=== PATIENT | female | born 1950 | race Caucasian/White ===

== ENCOUNTER 2016-12-05 14:20 | Inpatient (IN) | payer MEDICAID, MEDICARE ==
--- NOTE | 2016-12-05 14:54 | ED Physician Chart ---
Chief Complaint/HPI - Patient Information Date Seen:: 12/05/16 Time Seen:: 14:40 Chief Complaint:: generalized weakness History of Present Illness:: has had generalized weakness and increased confusion for one week. Allergies:: Allergies Allergy/AdvReac Type Severity Reaction Status Date / Time No Known Allergies Allergy Verified 12/05/16 14:38 Vitals:: Vital Signs - 8 hr 12/05/16 14:38 Temp 97.7 F HR 109 RR 21 BP 132/70 O2 Sat % 98 Historian:: Other Review:: Nurse's Note Reviewed, Transfer documents Reviewed Review of Systems - Review of Systems General/Constitutional: No fever, No chills Skin: No skin lesions Head: No headache Eyes: No loss of vision ENT: No earache, No nasal drainage Neck: No neck pain Cardio Vascular: No chest pain Pulmonary: No SOB GI: No nausea, No vomiting G/U: No dysuria, No frequency Musculoskeletal: No bone or joint pain, No back pain Psychiatric: No prior psych history Hematopoietic: No bruising Allergic/Immuno: No urticaria Neurological: No syncope Past Medical History - Past Medical History Past Medical History: Other (dementia; dysphagia) Family History: Other (unavailable) Social History: Care Facility Surgical History: other (unavailable) Psychiatricy History: Dementia Medication: Reviewed Labs/Radiology/EKG Results - Lab Results Results: Laboratory Results - last 24 hr 12/05/16 12/05/16 12/05/16 15:06 15:06 15:06 WBC 15.4 H D RBC 4.70 Hgb 14.0 Hct 40.9 D MCV 87.1 MCH 29.8 MCHC Differential 34.1 RDW 13.6 Plt Count 310 MPV 9.2 Neutrophils % 66.2 Lymphocytes % 19.7 L Monocytes % 13.6 H Eosinophils % 0.1 Basophils % 0.4 Sodium 141 Potassium 3.9 Chloride 108 H Carbon Dioxide 25.4 Anion Gap 11.5 BUN 22 Creatinine 0.8 Est GFR ( Amer) > 60.0 Est GFR (Non-Af Amer) > 60.0 BUN/Creatinine Ratio 27.5 Glucose 264 H Hemoglobin A1c % Calcium 9.5 Valproic Acid 68.4 12/05/16 15:06 WBC RBC Hgb Hct MCV MCH MCHC Differential RDW Plt Count MPV Neutrophils % Lymphocytes % Monocytes % Eosinophils % Basophils % Sodium Potassium Chloride Carbon Dioxide Anion Gap BUN Creatinine Est GFR ( Amer) Est GFR (Non-Af Amer) BUN/Creatinine Ratio Glucose Hemoglobin A1c % 5.6 Calcium Valproic Acid Laboratory Results - last 24 hr 12/05/16 12/05/16 12/05/16 15:06 15:06 15:06 WBC 15.4 H D RBC 4.70 Hgb 14.0 Hct 40.9 D MCV 87.1 MCH 29.8 MCHC Differential 34.1 RDW 13.6 Plt Count 310 MPV 9.2 Neutrophils % 66.2 Lymphocytes % 19.7 L Monocytes % 13.6 H Eosinophils % 0.1 Basophils % 0.4 Sodium 141 Potassium 3.9 Chloride 108 H Carbon Dioxide 25.4 Anion Gap 11.5 BUN 22 Creatinine 0.8 Est GFR ( Amer) > 60.0 Est GFR (Non-Af Amer) > 60.0 BUN/Creatinine Ratio 27.5 Glucose 264 H Hemoglobin A1c % Calcium 9.5 Urine Source Urine Color Urine Clarity Urine pH Ur Specific [place] Urine Protein Urine Glucose (UA) Urine Ketones Urine Blood Urine Nitrate Urine Bilirubin Urine Urobilinogen Ur Leukocyte Esterase Urine RBC Urine WBC Ur Epithelial Cells Urine Bacteria Valproic Acid 68.4 12/05/16 12/05/16 15:06 17:20 WBC RBC Hgb Hct MCV MCH MCHC Differential RDW Plt Count MPV Neutrophils % Lymphocytes % Monocytes % Eosinophils % Basophils % Sodium Potassium Chloride Carbon Dioxide Anion Gap BUN Creatinine Est GFR ( Amer) Est GFR (Non-Af Amer) BUN/Creatinine Ratio Glucose Hemoglobin A1c % 5.6 Calcium Urine Source [place] Urine Color YELLOW Urine Clarity CLOUDY H Urine pH 6.5 Ur Specific [place] 1.020 Urine Protein 100 H Urine Glucose (UA) 100 H Urine Ketones NEGATIVE Urine Blood SMALL H Urine Nitrate POSITIVE H Urine Bilirubin NEGATIVE Urine Urobilinogen 0.2 Ur Leukocyte Esterase LARGE H Urine RBC 2-5 Urine WBC 50-100 H Ur Epithelial Cells FEW Urine Bacteria MANY Valproic Acid - Radiology Results Results: CXR: increased interstitial markings; no infiltrate - EKG Interpretations Rhythm: sinus tach [place]: normal Rate: 109 ED Septic Shock - . Is Septic Shock (SBP<90, OR Lactate>4 mmol\L) present?: No - <6hrs of presentation: Vital Signs: Vital Signs - 8 hr 12/05/16 14:38 Temp 97.7 F HR 109 RR 21 BP 132/70 O2 Sat % 98 Reassessment (Disposition) - Reassessment Reassessment Condition:: Unchanged - Diagnosis Diagnosis:: UTI - Aftercare/Follow up Instructions Aftercare/Follow-Up Instructions:: Counseled pt & family regarding lab results/ diagnosis & need follow up - Patient Disposition Admitted to:: Med/Surg Spoke to:: Devante Joshi Admitting Medical Physician:: Devante Joshi Condition at Disposition:: Stable, Unchanged
[2016-12-05] MEDS ORDERED: Sodium Chloride 0.9% 1,000 ML IV ONE (14:55)
--- NOTE | 2016-12-05 15:18 | Diagnostic Imaging Report ---
Portable chest x-ray History: Cough Allowing for portable technique the heart size is normal. No focal pulmonary parenchymal processes. No hilar or mediastinal abnormalities. Degenerative changes seen to the spine. Impression: No acute abnormalities.
[2016-12-05 15:30] LABS: ANION GAP 11.5 (7.0-16.0); BUN - UREA NITROGEN 22 mg/dL (7-25); BUN/CREATININE RATIO 27.5; CALCIUM SERUM 9.5 mg/dL (8.6-10.3); CARBON DIOXIDE 25.4 mEq/L (21.0-31.0); CHLORIDE 108 mEq/L (98-107); CREATININE - SERUM 0.8 mg/dL (0.6-1.2); GLUCOSE 264 mg/dL (70-105); POTASSIUM SERUM 3.9 mEq/L (3.5-5.1); SODIUM SERUM 141 mEq/L (136-145)
[2016-12-05 15:37] LABS: % BASOPHILS 0.4 % (0.0-2.0); % EOSINOPHILS 0.1 % (0.0-5.0); % LYMPHOCYTES 19.7 % (20.0-50.0); % MONOCYTES 13.6 % (2.0-10.0); % NEUTROPHILS 66.2 % (40.0-80.0); MEAN CELL VOLUME 87.1 fl (81-100); MEAN CORPUSCULAR HEMOGLOBIN 29.8 pg (27.0-31.0); MEAN CORPUSCULAR HGB CONC 34.1 pg (28.0-36.0); MEAN PLATELET VOLUME 9.2 fl; NEUTROPHILE ABSOLUTE 10.2 Th/cmm (1.8-8.0); PLATELET COUNT 310 Th/cmm (150-400); RED CELL DISTRIBUTION WIDTH 13.6 % (11.5-20.0)
[2016-12-05 15:39] LABS: HEMATOCRIT 40.9 % (35.0-45.0); WHITE BLOOD COUNT 15.4 Th/cmm (4.8-10.8)
[2016-12-05 18:04] LABS: URINE BILIRUBIN NEGATIVE (NEGATIVE); URINE BLOOD SMALL (NEGATIVE); URINE COLOR YELLOW; URINE GLUCOSE (UA) 100 mg/dL (NEGATIVE); URINE KETONE NEGATIVE (NEGATIVE); URINE PH 6.5; URINE PROTEIN 100 mg/dL (NEGATIVE); URINE UROBILINOGEN 0.2 E.U./dL (0.2 - 1.0)
[2016-12-05 18:05] LABS: URINE BACTERIA MANY /hpf (NONE SEEN); URINE EPITHELIAL CELLS FEW /lpf (FEW)
[2016-12-05 18:06] LABS: URINE WBC 50-100 /hpf (0-5)
[2016-12-05] MEDS ORDERED: cefTRIAXone 1 GM in Sodium Chloride 0.9% 50 ML IV ONE (18:23)
[2016-12-05] MEDS ORDERED: Magnesium Hydroxide (MOM) 30 mL UDC PO PRN (22:13)
--- NOTE | 2016-12-06 02:30 | Admit Criteria Form ---
Admit Criteria Forms - Admit Criteria Diagnosis: URINARY COMPLICATIONS Clinical Indications for Inpatient Care (Place 'X' for any and all applicable criteria): Ongoing inpatient care may be indicated for urinary complications with ANY ONE of the following: [X ]I. Urinary tract infection requiring inpatient care as indicated by ANY ONE of the following(8)(19)(20): [ ]a) Severe symptoms (eg, high fever, severe pain) [ ]b) Vomiting or dehydration requiring ongoing inpatient care [X ]c) IV antibiotic needs that cannot be managed at lower level of care [ ]d) Hemodynamic instability [ ]e) Obstruction of collecting system by stone or tumor [ ]II. Urinary retention requiring drainage or surgery (3)(4)(5)(17)(18) [ ]III. Renal failure (Use Renal Failure Criteria for further information.) [ ]IV. Oliguria(30) [ ]V. Post obstructive diuresis requiring close monitoring of urine output and intravenous compensation for excessive fluid losses(33) Extended stay beyond goal length of stay for primary condition may be needed until ALL of the following are present(3)(4)(5)(8): [ ]a) Renal function (creatinine) at baseline, or daily decreases in creatinine consistent with renal function return [ ]b) Voiding adequately or with urinary catheter or percutaneous suprapubic tube and management regimen in place that is performable at lower level of care. [ ]c) Urine output adequate [ ]d) Fever absent or resolving [ ]e) Infection absent or treatable at next level of care The original [employer] content created by [employer] has been revised. The portions of the content which have been revised are identified through the use of italic text or in bold, and [email or web address] has neither reviewed nor approved the modified material. All other unmodified content is copyright [email or web address] Please see references footnoted in the original [facility] [employer] edition 2016 Admit Criteria Met?: Yes
[2016-12-06 06:28] LABS: % BASOPHILS 0.5 % (0.0-2.0); % EOSINOPHILS 0.5 % (0.0-5.0); % LYMPHOCYTES 19.1 % (20.0-50.0); % MONOCYTES 14.7 % (2.0-10.0); % NEUTROPHILS 65.2 % (40.0-80.0); HEMOGLOBIN 12.6 gm/dL (11.7-16.1); MEAN CELL VOLUME 87.1 fl (81-100); MEAN CORPUSCULAR HGB CONC 33.3 pg (28.0-36.0); NEUTROPHILE ABSOLUTE 8.4 Th/cmm (1.8-8.0); PLATELET COUNT 282 Th/cmm (150-400); RED BLOOD COUNT 4.36 Mil/cmm (3.80-5.20); RED CELL DISTRIBUTION WIDTH 13.8 % (11.5-20.0)
[2016-12-06] MEDS: cefTRIAXone 1 GM in Sodium Chloride 0.9% 50 ML IV SCH ×2 (06:37→21:58)
[2016-12-06 06:38] LABS: ALB/GLOB RATIO 0.8 (1.0-1.8); ALKALINE PHOSPHATASE 71 U/L (34-104); ANION GAP 4.8 (7.0-16.0); BILIRUBIN,TOTAL 0.5 mg/dL (0.3-1.0); BUN - UREA NITROGEN 17 mg/dL (7-25); CALCIUM SERUM 9.2 mg/dL (8.6-10.3); CHLORIDE 114 mEq/L (98-107); CREATININE - SERUM 0.5 mg/dL (0.6-1.2); GLUCOSE 161 mg/dL (70-105); POTASSIUM SERUM 3.8 mEq/L (3.5-5.1); SGOT 13 U/L (13-39); SGPT/ALT 9 U/L (7-52); SODIUM SERUM 139 mEq/L (136-145)
[2016-12-06] MEDS: Vitamin D3 2,000 IU SGL PO SCH (08:27)
[2016-12-06] MEDS: Aspirin 81mg Chewable Tab PO SCH (08:27)
[2016-12-06] MEDS: Sodium Chloride 0.9% 1,000 ML IV SCH ×2 (08:27→22:08)
[2016-12-06] MEDS ORDERED: Non-Formulary Item 1 EA (Cranberry Fruit [Cranberry] 450 MG) PO SCH (09:00)
--- NOTE | 2016-12-06 09:00 | General Progress Note ---
Subjective - Review of Systems Service Date: 12/06/16 Subjective: Non verbal Objective - Results Result Diagrams: 12/06/16 06:00 12/06/16 06:00 Recent Labs: Laboratory Last Values WBC 13.0 Th/cmm (4.8-10.8) H 12/06/16 06:00 RBC 4.36 Mil/cmm (3.80-5.20) 12/06/16 06:00 Hgb 12.6 gm/dL (11.7-16.1) 12/06/16 06:00 Hct 38.0 % (35.0-45.0) 12/06/16 06:00 MCV 87.1 fl (81-100) 12/06/16 06:00 MCH 29.0 pg (27.0-31.0) 12/06/16 06:00 MCHC Differential 33.3 pg (28.0-36.0) 12/06/16 06:00 RDW 13.8 % (11.5-20.0) 12/06/16 06:00 Plt Count 282 Th/cmm (150-400) 12/06/16 06:00 MPV 9.0 fl 12/06/16 06:00 Neutrophils % 65.2 % (40.0-80.0) 12/06/16 06:00 Lymphocytes % 19.1 % (20.0-50.0) L 12/06/16 06:00 Monocytes % 14.7 % (2.0-10.0) H 12/06/16 06:00 Eosinophils % 0.5 % (0.0-5.0) 12/06/16 06:00 Basophils % 0.5 % (0.0-2.0) 12/06/16 06:00 Sodium 139 mEq/L (136-145) 12/06/16 06:00 Potassium 3.8 mEq/L (3.5-5.1) 12/06/16 06:00 Chloride 114 mEq/L (98-107) H 12/06/16 06:00 Carbon Dioxide 24.0 mEq/L (21.0-31.0) 12/06/16 06:00 Anion Gap 4.8 (7.0-16.0) L 12/06/16 06:00 BUN 17 mg/dL (7-25) 12/06/16 06:00 Creatinine 0.5 mg/dL (0.6-1.2) L 12/06/16 06:00 Est GFR ( Amer) > 60.0 ml/min (>90) 12/06/16 06:00 Est GFR (Non-Af Amer) > 60.0 ml/min 12/06/16 06:00 BUN/Creatinine Ratio 34.0 12/06/16 06:00 Glucose 161 mg/dL (70-105) H 12/06/16 06:00 Hemoglobin A1c % 5.6 % (4.0-6.0) 12/05/16 15:06 Calcium 9.2 mg/dL (8.6-10.3) 12/06/16 06:00 Total Bilirubin 0.5 mg/dL (0.3-1.0) 12/06/16 06:00 AST 13 U/L (13-39) 12/06/16 06:00 ALT 9 U/L (7-52) 12/06/16 06:00 Alkaline Phosphatase 71 U/L (34-104) 12/06/16 06:00 Total Protein 7.0 gm/dL (6.0-8.3) 12/06/16 06:00 Albumin 3.0 gm/dL (3.7-5.3) L 12/06/16 06:00 Globulin 4.0 gm/dL 12/06/16 06:00 Albumin/Globulin Ratio 0.8 (1.0-1.8) L 12/06/16 06:00 Urine Source [place] 12/05/16 17:20 Urine Color YELLOW 12/05/16 17:20 Urine Clarity CLOUDY (CLEAR) H 12/05/16 17:20 Urine pH 6.5 12/05/16 17:20 Ur Specific [place] 1.020 (1.005-1.030) 12/05/16 17:20 Urine Protein 100 mg/dL (NEGATIVE) H 12/05/16 17:20 Urine Glucose (UA) 100 mg/dL (NEGATIVE) H 12/05/16 17:20 Urine Ketones NEGATIVE mg/dL (NEGATIVE) 12/05/16 17:20 Urine Blood SMALL (NEGATIVE) H 12/05/16 17:20 Urine Nitrate POSITIVE (NEGATIVE) H 12/05/16 17:20 Urine Bilirubin NEGATIVE (NEGATIVE) 12/05/16 17:20 Urine Urobilinogen 0.2 E.U./dL (0.2 - 1.0) 12/05/16 17:20 Ur Leukocyte Esterase LARGE (NEGATIVE) H 12/05/16 17:20 Urine RBC 2-5 /hpf (0-5) 12/05/16 17:20 Urine WBC 50-100 /hpf (0-5) H 12/05/16 17:20 Ur Epithelial Cells FEW /lpf (FEW) 12/05/16 17:20 Urine Bacteria MANY /hpf (NONE SEEN) 12/05/16 17:20 Valproic Acid 68.4 ug/mL (50.0-100.0) 12/05/16 15:06 - Physical Exam Vitals and I&O: Vital Signs Temp 98.6 F 12/06/16 08:27 Pulse 74 12/06/16 08:27 Resp 17 12/06/16 08:27 BP 137/60 12/06/16 08:27 Pulse Ox 100 12/06/16 08:27 Active Medications: Current Medications Acetaminophen (Tylenol) 650 mg PO Q6H PRN PRN Reason: Pain or Fever >101 Stop: 02/03/17 22:11 Aspirin (Aspirin Chewable) 81 mg PO DAILY JACQUELINE Stop: 02/04/17 08:59 Last Admin: 12/06/16 08:27 Dose: 81 mg Atorvastatin Calcium (Lipitor) 5 mg PO HS JACQUELINE PRN Reason: Protocol Stop: 02/04/17 20:59 Divalproex Sodium (Depakote Dr) 500 mg PO BID JACQUELINE PRN Reason: Protocol Stop: 02/04/17 08:59 Famotidine (Pepcid) 20 mg PO DAILY JACQUELINE Stop: 02/04/17 08:59 Last Admin: 12/06/16 08:27 Dose: 20 mg Folic Acid (Folate) 1 mg PO DAILY JACQUELINE Stop: 02/04/17 08:59 Last Admin: 12/06/16 08:27 Dose: 1 mg Sodium Chloride (Nacl 0.9%) 1,000 mls @ 75 mls/hr IV .[id number] JACQUELINE Stop: 02/03/17 22:12 Last Admin: 12/06/16 08:27 Dose: 75 mls/hr Ceftriaxone Sodium 1 gm/ (Sodium Chloride) 50 mls @ 100 mls/hr IV Q24HR JACQUELINE Stop: 02/03/17 22:14 Last Admin: 12/06/16 06:37 Dose: Not Given Lorazepam (Ativan) 1 mg PO Q6H PRN; Protocol PRN Reason: Anxiety Stop: 02/03/17 22:12 Magnesium Hydroxide (Milk Of Magnesia) 30 ml PO HS PRN PRN Reason: Constipation Stop: 02/03/17 22:12 Mirtazapine (Remeron) 15 mg PO HS JACQUELINE PRN Reason: Protocol Stop: 02/04/17 20:59 Miscellaneous (Cranberry Fruit [Cranberry]) 450 mg PO DAILY JACQUELINE Stop: 02/04/17 08:59 Vitamin D (Vitamin D3) 2,000 iu PO DAILY JACQUELINE Stop: 02/04/17 08:59 Last Admin: 12/06/16 08:27 Dose: 2,000 iu Zolpidem Tartrate (Ambien) 5 mg PO HS PRN PRN Reason: Insomnia Stop: 02/03/17 22:12 General: Alert, Other (Confused) HEENT: Atraumatic Neck: Supple Cardiovascular: Regular rate Lungs: Clear to auscultation Abdomen: Bowel sounds, Soft Extremities: Other (No edema) Neurological: Other (Non ambulatory) Skin: Other (Warm and dry) Psych/Mental Status: Other (Confused) Assessment/Plan - Problem List Patient Problems: All Active Problems INCREASED CONFUSION WITH WEAKNESS (Acute) Dehydration (Active) E86.0 Diabetes mellitus (Active) E11.9 Hyponatremia (Active) E87.1 Nausea (Active) R11.0 Lesion of neck (Acute) L98.9 - Assessment Assessment: Patient is awake, confused. Dx: Sepsis secondary to UTI, Dementia - Plan Plan: Patient on ceftriaxone, will continue monitoring
--- NOTE | 2016-12-06 12:22 | History & Physical ---
CHIEF COMPLAINT: Generalized weakness and increasing confusion. HISTORY OF PRESENT ILLNESS: This is the case of a 66-year-old female that [facility]. I received a call from [facility] stating the patient has been increasingly getting weak with confusion, reason why the order was done to send the patient to ER for evaluation and treatment. During the evaluation in ER, it was found the patient has a WBC of ____ and urine showing UTI. PAST MEDICAL HISTORY: The patient has past medical history of dementia and dysphagia ____. FAMILY HISTORY: Noncontributory. SOCIAL HISTORY: The patient is a permanent resident of a [facility]. PAST SURGICAL HISTORY: Not available. MEDICATIONS: Reviewed. PSYCHIATRIC HISTORY: Dementia. PHYSICAL EXAMINATION: GENERAL: Does reveal fairly nourished and developed female, awake, alert, confused. VITAL SIGNS: The patient seems weak. The patient speaks, but it is not possible to understand what she is saying. HEENT: Head is normocephalic and atraumatic. Eyes: Pupils reactive to light. Nose: No evidence of nasal obstruction. Ears: No evidence of any discharge. Mouth: Fairly ____. LUNGS: Bilateral air entry. No wheezing, no crackles. HEART: Regular rhythm. ABDOMEN: Soft, nontender. Bowel sound is present. EXTREMITIES: Limited movement of all extremities. NEUROLOGICAL: The patient is awake, alert, confused. Neurological examination was not completed secondary to the patient's mental condition. IMPRESSION: 1. Sepsis secondary to urinary tract infection. 2. Dementia. PLAN: 1. The patient will be admitted in the medical surgical floor. 2. Ceftriaxone IV. 3. Continue with [facility] medications. 4. Regular diet. 5. CBC, CMP at a.m. JOB# [id number]
[2016-12-06] MEDS: Atorvastatin Calcium 10 MG TAB PO SCH (22:04)
[2016-12-07 06:28] LABS: HEMOGLOBIN 11.6 gm/dL (11.7-16.1)
[2016-12-07 06:46] LABS: ALB/GLOB RATIO 0.7 (1.0-1.8); ALKALINE PHOSPHATASE 73 U/L (34-104); ANION GAP 10.7 (7.0-16.0); BILIRUBIN,TOTAL 0.4 mg/dL (0.3-1.0); BUN - UREA NITROGEN 15 mg/dL (7-25); CALCIUM SERUM 8.8 mg/dL (8.6-10.3); CHLORIDE 108 mEq/L (98-107); CREATININE - SERUM 0.6 mg/dL (0.6-1.2); GLUCOSE 133 mg/dL (70-105); POTASSIUM SERUM 3.7 mEq/L (3.5-5.1); SGOT 18 U/L (13-39); SGPT/ALT 12 U/L (7-52); SODIUM SERUM 140 mEq/L (136-145)
[2016-12-07 07:09] LABS: HEMATOCRIT 34.4 % (35.0-45.0); MEAN CELL VOLUME 88.3 fl (81-100); MEAN CORPUSCULAR HEMOGLOBIN 29.8 pg (27.0-31.0); MEAN CORPUSCULAR HGB CONC 33.8 pg (28.0-36.0); MEAN PLATELET VOLUME 9.7 fl; PLATELET COUNT 273 Th/cmm (150-400); RED CELL DISTRIBUTION WIDTH 13.3 % (11.5-20.0); WHITE BLOOD COUNT 10.7 Th/cmm (4.8-10.8)
[2016-12-07] MEDS: Vitamin D3 2,000 IU SGL PO SCH (09:20)
[2016-12-07] MEDS: Aspirin 81mg Chewable Tab PO SCH (09:20)
[2016-12-07 11:12] LABS: EOSINOPHIL 0 % (0-5); NEUTROPHILS 52 % (40-80); PLATELET ESTIMATE ADEQUATE (NORMAL); PLATELET MORPHOLOGY NORMAL (NORMAL); TOTAL CELLS COUNTED 100
[2016-12-07] MEDS ORDERED: cefTRIAXone 1 GM in Sodium Chloride 0.9% 100 ML IV SCH ×2 (11:19→22:15)
[2016-12-07] MEDS: Sodium Chloride 0.9% 1,000 ML IV SCH (12:09)
--- NOTE | 2016-12-07 12:35 | General Progress Note ---
Subjective - Review of Systems Service Date: 12/07/16 Subjective: Confused Objective - Results Result Diagrams: 12/07/16 05:46 12/07/16 05:46 Recent Labs: Laboratory Last Values WBC 10.7 Th/cmm (4.8-10.8) 12/07/16 05:46 RBC 3.90 Mil/cmm (3.80-5.20) 12/07/16 05:46 Hgb 11.6 gm/dL (11.7-16.1) L 12/07/16 05:46 Hct 34.4 % (35.0-45.0) L 12/07/16 05:46 MCV 88.3 fl (81-100) 12/07/16 05:46 MCH 29.8 pg (27.0-31.0) 12/07/16 05:46 MCHC Differential 33.8 pg (28.0-36.0) 12/07/16 05:46 RDW 13.3 % (11.5-20.0) 12/07/16 05:46 Plt Count 273 Th/cmm (150-400) 12/07/16 05:46 MPV 9.7 fl 12/07/16 05:46 Neutrophils % 65.2 % (40.0-80.0) 12/06/16 06:00 Lymphocytes % 19.1 % (20.0-50.0) L 12/06/16 06:00 Monocytes % 14.7 % (2.0-10.0) H 12/06/16 06:00 Eosinophils % 0.5 % (0.0-5.0) 12/06/16 06:00 Basophils % 0.5 % (0.0-2.0) 12/06/16 06:00 Neutrophils (Manual) 52 % (40-80) 12/07/16 05:46 Lymphocytes 35 % (20-50) 12/07/16 05:46 Monocytes 13 % (2-10) H 12/07/16 05:46 Eosinophils 0 % (0-5) 12/07/16 05:46 Platelet Estimate ADEQUATE (NORMAL) 12/07/16 05:46 Platelet Morphology NORMAL (NORMAL) 12/07/16 05:46 RBC Morph Micro Appear NORMAL (NORMAL) 12/07/16 05:46 Sodium 140 mEq/L (136-145) 12/07/16 05:46 Potassium 3.7 mEq/L (3.5-5.1) 12/07/16 05:46 Chloride 108 mEq/L (98-107) H 12/07/16 05:46 Carbon Dioxide 25.0 mEq/L (21.0-31.0) 12/07/16 05:46 Anion Gap 10.7 (7.0-16.0) 12/07/16 05:46 BUN 15 mg/dL (7-25) 12/07/16 05:46 Creatinine 0.6 mg/dL (0.6-1.2) 12/07/16 05:46 Est GFR ( Amer) > 60.0 ml/min (>90) 12/07/16 05:46 Est GFR (Non-Af Amer) > 60.0 ml/min 12/07/16 05:46 BUN/Creatinine Ratio 25.0 12/07/16 05:46 Glucose 133 mg/dL (70-105) H 12/07/16 05:46 Hemoglobin A1c % 5.6 % (4.0-6.0) 12/05/16 15:06 Calcium 8.8 mg/dL (8.6-10.3) 12/07/16 05:46 Total Bilirubin 0.4 mg/dL (0.3-1.0) 12/07/16 05:46 AST 18 U/L (13-39) 12/07/16 05:46 ALT 12 U/L (7-52) 12/07/16 05:46 Alkaline Phosphatase 73 U/L (34-104) 12/07/16 05:46 Total Protein 6.4 gm/dL (6.0-8.3) 12/07/16 05:46 Albumin 2.7 gm/dL (3.7-5.3) L 12/07/16 05:46 Globulin 3.7 gm/dL 12/07/16 05:46 Albumin/Globulin Ratio 0.7 (1.0-1.8) L 12/07/16 05:46 TSH 3.52 uIU/ml (0.34-5.60) 12/07/16 05:46 Urine Source [place] 12/05/16 17:20 Urine Color YELLOW 12/05/16 17:20 Urine Clarity CLOUDY (CLEAR) H 12/05/16 17:20 Urine pH 6.5 12/05/16 17:20 Ur Specific [place] 1.020 (1.005-1.030) 12/05/16 17:20 Urine Protein 100 mg/dL (NEGATIVE) H 12/05/16 17:20 Urine Glucose (UA) 100 mg/dL (NEGATIVE) H 12/05/16 17:20 Urine Ketones NEGATIVE mg/dL (NEGATIVE) 12/05/16 17:20 Urine Blood SMALL (NEGATIVE) H 12/05/16 17:20 Urine Nitrate POSITIVE (NEGATIVE) H 12/05/16 17:20 Urine Bilirubin NEGATIVE (NEGATIVE) 12/05/16 17:20 Urine Urobilinogen 0.2 E.U./dL (0.2 - 1.0) 12/05/16 17:20 Ur Leukocyte Esterase LARGE (NEGATIVE) H 12/05/16 17:20 Urine RBC 2-5 /hpf (0-5) 12/05/16 17:20 Urine WBC 50-100 /hpf (0-5) H 12/05/16 17:20 Ur Epithelial Cells FEW /lpf (FEW) 12/05/16 17:20 Urine Bacteria MANY /hpf (NONE SEEN) 12/05/16 17:20 Valproic Acid 68.4 ug/mL (50.0-100.0) 12/05/16 15:06 - Physical Exam Vitals and I&O: Vital Signs Temp 97.2 F 12/07/16 07:32 Pulse 83 12/07/16 07:32 Resp 18 12/07/16 08:00 BP 117/56 12/07/16 07:32 Pulse Ox 100 12/07/16 07:32 Intake & Output 12/06/16 12/07/16 12/07/16 18:59 06:59 18:59 Intake Total 1000 1000 Balance 1000 1000 Intake: Intake, IV Amount 1000 1000 Sodium Chloride 0.9% 1, 1000 1000 000 ml @ 75 mls/hr IV . [id number] [facility] Rx#:[id number] Active Medications: Current Medications Acetaminophen (Tylenol) 650 mg PO Q6H PRN PRN Reason: Pain or Fever >101 Stop: 02/03/17 22:11 Last Admin: 12/06/16 22:18 Dose: 650 mg Aspirin (Aspirin Chewable) 81 mg PO DAILY [facility] Stop: 02/04/17 08:59 Last Admin: 12/07/16 09:20 Dose: 81 mg Atorvastatin Calcium (Lipitor) 5 mg PO HS JACQUELINE PRN Reason: Protocol Stop: 02/04/17 20:59 Last Admin: 12/06/16 22:04 Dose: 5 mg Divalproex Sodium (Depakote Dr) 500 mg PO Q12HR JACQUELINE PRN Reason: Protocol Stop: 02/04/17 11:29 Last Admin: 12/07/16 09:20 Dose: 500 mg Famotidine (Pepcid) 20 mg PO DAILY JACQUELINE Stop: 02/04/17 08:59 Last Admin: 12/07/16 09:19 Dose: 20 mg Folic Acid (Folate) 1 mg PO DAILY JACQUELINE Stop: 02/04/17 08:59 Last Admin: 12/07/16 09:20 Dose: 1 mg Heparin Sodium (Porcine) (Heparin) 5,000 units SUBQ Q12HR JACQUELINE Stop: 02/04/17 20:59 Last Admin: 12/07/16 09:59 Dose: 5,000 units Sodium Chloride (Nacl 0.9%) 1,000 mls @ 75 mls/hr IV .[id number] JACQUELINE Stop: 02/03/17 22:12 Last Admin: 12/07/16 12:09 Dose: 75 mls/hr Ceftriaxone Sodium 1 gm/ (Sodium Chloride) 100 mls @ 100 mls/hr IV Q24HR JACQUELINE Stop: 02/03/17 22:14 Lorazepam (Ativan) 1 mg PO Q6H PRN; Protocol PRN Reason: Anxiety Stop: 02/03/17 22:12 Magnesium Hydroxide (Milk Of Magnesia) 30 ml PO HS PRN PRN Reason: Constipation Stop: 02/03/17 22:12 Mirtazapine (Remeron) 15 mg PO HS JACQUELINE PRN Reason: Protocol Stop: 02/04/17 20:59 Miscellaneous (Cranberry Fruit [Cranberry]) 450 mg PO DAILY JACQUELINE Stop: 02/04/17 08:59 Vitamin D (Vitamin D3) 2,000 iu PO DAILY JACQUELINE Stop: 02/04/17 08:59 Last Admin: 12/07/16 09:20 Dose: 2,000 iu Zolpidem Tartrate (Ambien) 5 mg PO HS PRN PRN Reason: Insomnia Stop: 02/03/17 22:12 General: Alert, Other (Confused) HEENT: Atraumatic Neck: Supple Cardiovascular: Regular rate Lungs: Clear to auscultation Abdomen: Bowel sounds Extremities: Other (No edema) Neurological: Other (Unstable gait) Skin: Other (Warm and dry) Psych/Mental Status: Other (Confused) Assessment/Plan - Problem List Patient Problems: All Active Problems INCREASED CONFUSION WITH WEAKNESS (Acute) Dehydration (Active) E86.0 Diabetes mellitus (Active) E11.9 Hyponatremia (Active) E87.1 Nausea (Active) R11.0 Lesion of neck (Acute) L98.9 - Assessment Assessment: Patient is more awake today, confused, answering question. Dx: Sepsis secondary to UTI, Dementia. WBC improving - Plan Plan: Patient on ceftriaxone, will continue monitoring.
[2016-12-07] MEDS: Atorvastatin Calcium 10 MG TAB PO SCH (21:43)
[2016-12-07] MEDS ORDERED: Piperacillin Sodium/Tazobact 3.375 gm Vial IV ONE (23:09)
[2016-12-08] MEDS ORDERED: Piperacillin Sodium/Tazobact 3.375 gm Vial IV ONE (05:55)
[2016-12-08 06:27] LABS: % BASOPHILS 0.6 % (0.0-2.0); % EOSINOPHILS 0.9 % (0.0-5.0); % LYMPHOCYTES 40.8 % (20.0-50.0); % MONOCYTES 14.9 % (2.0-10.0); % NEUTROPHILS 42.8 % (40.0-80.0); HEMATOCRIT 33.8 % (35.0-45.0); HEMOGLOBIN 11.3 gm/dL (11.7-16.1); MEAN CELL VOLUME 87.4 fl (81-100); MEAN CORPUSCULAR HEMOGLOBIN 29.3 pg (27.0-31.0); MEAN CORPUSCULAR HGB CONC 33.5 pg (28.0-36.0); MEAN PLATELET VOLUME 8.5 fl; NEUTROPHILE ABSOLUTE 3.5 Th/cmm (1.8-8.0); PLATELET COUNT 297 Th/cmm (150-400); RED BLOOD COUNT 3.86 Mil/cmm (3.80-5.20)
[2016-12-08 06:42] LABS: ANION GAP 8.5 (7.0-16.0); BUN - UREA NITROGEN 12 mg/dL (7-25); CARBON DIOXIDE 26.4 mEq/L (21.0-31.0); CHLORIDE 108 mEq/L (98-107); CREATININE - SERUM 0.5 mg/dL (0.6-1.2); GLUCOSE 125 mg/dL (70-105); POTASSIUM SERUM 3.9 mEq/L (3.5-5.1); SODIUM SERUM 139 mEq/L (136-145)
[2016-12-08 06:43] LABS: ALB/GLOB RATIO 0.7 (1.0-1.8); ALKALINE PHOSPHATASE 64 U/L (34-104); BILIRUBIN,TOTAL 0.4 mg/dL (0.3-1.0); SGOT 15 U/L (13-39); SGPT/ALT 13 U/L (7-52)
[2016-12-08 07:09] LABS: WHITE BLOOD COUNT 8.5 Th/cmm (4.8-10.8)
[2016-12-08] MEDS: Vitamin D3 2,000 IU SGL PO SCH (08:44)
[2016-12-08] MEDS: Aspirin 81mg Chewable Tab PO SCH (09:20)
--- NOTE | 2016-12-13 21:28 | Discharge Summary ---
CHIEF COMPLAINT: Increasing confusion and general weakness. HISTORY OF PRESENT ILLNESS: This is the case of a 66-year-old female who was sent from [facility] secondary to increasing confusion and generalized weakness. During the evaluation in the ER, it was found that the patient had really serious UTI, reason why the patient was hospitalized for treatment. HOSPITAL COURSE AND TREATMENT: This patient was admitted in the medical/surgical floor. She was started on IV normal saline. She was continued with ceftriaxone IV. She was continued with [facility] medications and regular diet. With this treatment and after 4 days in the hospital and due to the improvement of the patient, it was considered the patient received the maximum benefit of hospitalization, and she can be sent back to [facility] to continue treatment. On the day of the discharge, the patient was awake, alert, and in no acute distress. DISPOSITION: The patient is sent back to halfway. DIAGNOSES: 1. Sepsis secondary to urinary tract infection. 2. Dementia. JOB# [id number]
== END 2016-12-08 14:20 | DRG 871 ==
LOC: ER 14:20 → MSI 19:35
PROVIDERS: ADMIT General Practice; ATTEND General Practice
DX: A41.9 Sepsis, unspecified organism (principal); G93.41 Metabolic encephalopathy; N39.0 Urinary tract infection, site not specified; F03.90 Unspecified dementia, unspecified severity, without behavioral disturbance, psychotic disturbance, mood disturbance, and anxiety; R13.10 Dysphagia, unspecified
CPT/HCPCS: 36415-UA; 71010-TC; 80048-TC; 80053-TC; 80164-TC; 81001-TC; 82140-TC; 83036-90; 84443-TC; 85007-TC; 85025-TC; 85027-TC; 87086-90; 93005; J0696; J1644; J2543; J7030; Z7610

== ENCOUNTER 2018-08-26 12:55 | Inpatient (IN) | payer MEDICARE, MEDICAID ==
[2018-08-26] MEDS ORDERED: Sodium Chloride 0.9% 1,000 ML IV ONE (13:25)
--- NOTE | 2018-08-26 13:43 | ED Physician Chart ---
ED Chief Complaint/HPI - Patient Information Date Seen:: 08/26/18 Time Seen:: 13:10 Chief Complaint:: Abdominal Pain History of Present Illness:: onset x 3 days of intermittent, crampy lower abd. pain, flank pain, and dysuria ; no report of trauma, H/As, S/T, neck pain, C/P, SOB, A/N/V/D/C, fever, chills , bleeding, or back pain Allergies:: Allergies Allergy/AdvReac Type Severity Reaction Status Date / Time No Known Allergies Allergy Verified 08/26/18 13:30 Vitals:: Vital Signs - 8 hr 08/26/18 13:11 Temp 98.1 F HR 75 RR 18 BP 110/54 O2 Sat % 97 Historian:: Patient, EMS, Family Member Review:: Nurse's Note Reviewed, Old Chart Reviewed, EMS run form Reviewed ED Review of Systems - Review of Systems General/Constitutional: Fever, No chills, No weight loss, No weakness, No diaphoresis, No edema, No loss of appetite Skin: No skin lesions, No rash, No bruising Head: No headache, No light-headedness Eyes: No loss of vision, No pain, No diplopia ENT: No earache, No nasal drainage, No sore throat, No tinnitus Neck: No neck pain, No swelling, No thyromegaly, No stiffness, No mass noted Cardio Vascular: No chest pain, No palpitations, No PND, No orthopnea, No edema Pulmonary: No SOB, No cough, No sputum, No wheezing GI: No nausea, No vomiting, No diarrhea, Pain, No melena, No hematochezia, No constipation, No hematemesis G/U: Dysuria, Frequency, No hematuria, No nacturia Pest Control Chemical Technician: No vaginal discharge, No abnormal vaginal bleed, No contraction Musculoskeletal: No bone or joint pain, No back pain, No muscle pain Endocrine: No polyuria, No polydipsia Psychiatric: No prior psych history, No depression, No anxiety, No suicidal ideation, No homicidal ideation, No auditory hallucination, No visual hallucination Hematopoietic: No bruising, No lymphadenopathy Allergic/Immuno: No urticaria, No angioedema Neurological: No syncope, No focal symptoms, No weakness, No paresthesia, No headache, No seizure, No dizziness, Confusion, No vertigo ED Past Medical History - Past Medical History Obtainable: Yes Past Medical History: HTN, DM, CAD, Dyslipidemia, PUD/GERD, Arthritis, Dementia Family History: Diabetes Melitus, HTN Social History: Non Smoker, No Alcohol, No Drug Use, Surgical History: Cholecystectomy Psychiatricy History: Dementia Medication: Reviewed Family Medical History - Family Member Mother History Unknown: Yes ED Physical Exam - Physical Examination General/Constitutional: Awake, Well-developed, well-nourished, Alert, No distress, GCS 15, Non-toxic appearing, Ambulatory Head: Atraumatic Eyes: Lids, conjuctiva normal, PERRL, EOMI Skin: Nl inspection, No rash, No skin lesions, No ecchymosis, Well hydrated, No lymphadenopathy ENMT: External ears, nose nl, TM canals nl, Nasal exam nl, Lips, teeth, gums nl , Oropharynx nl, Tonsils nl Neck: Nontender, Full ROM w/o pain, No JVD, No nuchal rigidity, No bruit, No mass, No stridor Respiratory: Nl effort/Exclusion, Clear to Auscultation, No Wheeze/Rhonchi/Rales Cardio Vascular: RRR, No murmur, gallop, rubs, NL S1 S2 GI: No tenderness/rebounding/guarding, No organomegaly, No hernia, Normal BS's, Nondistended, No mass/bruits, No McBurney tenderness : No CVA tenderness Extremities: No tenderness or effusion, Full ROM, normal strength in all extremities, No edema, Normal digits & nails Neuro/Psych: Alert/oriented, DTR's symmetric, Normal sensory exam, Normal motor strength, Judgement/insight normal, Mood normal, Normal gait, No focal deficits Misc: Normal back, No paraspinal tenderness ED Labs/Radiology/EKG Results - Lab Results Comments:: Reviewed - Radiology Results Comments:: NAD - EKG Interpretations EKG Time:: 15:56 Rate & Rhythm: 70; NSR Comments:: non-specific st-t changes ED Septic Shock - . Is Septic Shock (SBP<90, OR Lactate>4 mmol\L) present?: No - <6hrs of presentation: Vital Signs: Vital Signs - 8 hr 18 13:11 Temp 98.1 F HR 75 RR 18 BP 110/54 O2 Sat % 97 ED Reassessment (Disposition) - Reassessment Reassessment Condition:: Improved - Diagnosis Diagnosis:: Dysuria; Abdominal Pain; Dehydration; UTI; Sepsis - Aftercare/Follow up Instructions Aftercare/Follow-Up Instructions:: Counseled pt regarding lab results/diagnosis & need follow up, Counseled pt & family regarding lab results/diagnosis & need follow up - Patient Disposition Discharge/Transfer:: Acute Care w/in this hosp Accepting Physician:: Dr. Joshi Time Called:: 1500 Time Responded:: 15:00 Admitted to:: Med/Surg Spoke to:: Dr. Joshi Admitting Medical Physician:: Dr. Joshi Condition at Disposition:: Stable, Improved
[2018-08-26 13:46] LABS: % BASOPHILS 0.4 % (0.0-2.0); % LYMPHOCYTES 39.6 % (20.0-50.0); % MONOCYTES 6.8 % (2.0-10.0); % NEUTROPHILS 50.2 % (40.0-80.0); EOSINOPHILE ABSOLUTE 0.3 Th/cmm (0.1-0.4); HEMATOCRIT 38.2 % (41.0-60); HEMOGLOBIN 12.6 gm/dL (12-16); LYMPHOCYTE ABSOLUTE 3.9 Th/cmm (1.5-3.0); MEAN CORPUSCULAR HEMOGLOBIN 28.6 pg (27.0-31.0); MEAN CORPUSCULAR HGB CONC 32.9 pg (28.0-36.0); MEAN PLATELET VOLUME 8.7 fl; MONOCYTE ABSOLUTE 0.7 Th/cmm (0.3-1.0); PLATELET COUNT 369 Th/cmm (150-400); RED BLOOD COUNT 4.39 Mil/cmm (3.80-5.20); RED CELL DISTRIBUTION WIDTH 13.6 % (11.5-20.0); WHITE BLOOD COUNT 9.9 Th/cmm (4.8-10.8)
[2018-08-26 14:32] LABS: ALBUMIN 3.8 gm/dL (3.7-5.3); ALKALINE PHOSPHATASE 89 U/L (34-104); AMYLASE SERUM 38 U/L (29-103); ANION GAP 15.6 (7.0-16.0); BILIRUBIN,TOTAL 0.3 mg/dL (0.3-1.0); BUN - UREA NITROGEN 26 mg/dL (7-25); CALCIUM SERUM 9.3 mg/dL (8.6-10.3); CARBON DIOXIDE 20.4 mEq/L (21.0-31.0); CHLORIDE 105 mEq/L (98-107); CREATININE - SERUM 0.8 mg/dL (0.6-1.2); GFR AFRICAN-AMERICAN > 60.0 ml/min (>90); GFR NON AFRICAN-AMERICAN > 60.0 ml/min; GLUCOSE 117 mg/dL (70-105); LIPASE 19 U/L (11-82); SGOT 20 U/L (13-39); SGPT/ALT 19 U/L (7-52); SODIUM SERUM 137 mEq/L (136-145); TOTAL PROTEIN,SERUM 7.5 gm/dL (6.0-8.3)
--- NOTE | 2018-08-26 15:03 | Diagnostic Imaging Report ---
Ultrasound abdomen HISTORY: Abdominal pain provided history of cholecystectomy. Dysuria COMPARISON: Chest x-ray demonstrating cholecystectomy clips. Technique: Sonography of the abdomen was performed in multiple planes. FINDINGS: Exam is limited due to bowel gas and body habitus. The liver demonstrates increased echogenicity with no evidence of obvious focal lesions. The liver measures 18.8 cm. The gallbladder was not visualized. The common bile duct measures 6 mm. Evaluation of the pancreas is limited due to bowel gas. The right kidney measures 9.9 x 4.6 cm. No evidence of focal lesions or hydronephrosis. The left kidney measures 10.3 x 5.2 cm. No evidence of focal lesions or hydronephrosis. Note assessment for focal renal lesions was limited on this examination. The spleen measures 10.4 cm. IMPRESSION: No evidence of hydronephrosis or sonographic evidence of renal stones. Note exam was limited due to body habitus and bowel gas. Mild hepatomegaly with increased echogenicity which may be due to underlying fatty infiltration. Nonvisualization of the gallbladder compatible with surgical history.
--- NOTE | 2018-08-26 15:04 | Diagnostic Imaging Report ---
Ultrasound pelvis HISTORY: Pelvic pain, dysuria, postmenopausal COMPARISON: Abdomen ultrasound the same day Technique: Longitudinal and transverse sonographic sector images of the pelvis were obtained transabdominally only. Findings: The uterus and ovaries are not visualized. Patient was incontinent. The urinary bladder wall measures 6 mm. No free fluid identified. IMPRESSION: The urinary bladder wall measures 6 mm, mildly thickened. Inflammatory process cannot be excluded. Please correlate clinically. The uterus and ovaries are not visualized.
[2018-08-26] MEDS ORDERED: cefTRIAXone 1 GM in Sodium Chloride 0.9% 50 ML IV ONE (17:07)
[2018-08-26 17:33] LABS: URINE SOURCE CATH
[2018-08-26 17:35] LABS: URINE BILIRUBIN NEGATIVE (NEGATIVE); URINE BLOOD LARGE (NEGATIVE); URINE GLUCOSE (UA) NEGATIVE (NEGATIVE); URINE KETONE NEGATIVE (NEGATIVE); URINE LEUKOCYTE ESTERASE LARGE (NEGATIVE); URINE MICROSCOPIC INDICATED? YES; URINE NITRATE POSITIVE (NEGATIVE); URINE PH 8.5 (4.6 - 8.0); URINE PROTEIN 100 mg/dL (NEGATIVE); URINE UROBILINOGEN 0.2 E.U./dL (0.2 - 1.0)
[2018-08-26 17:46] LABS: URINE COLOR RED
[2018-08-26 17:47] LABS: URINE CLARITY HAZY (CLEAR)
[2018-08-26 17:48] LABS: URINE BACTERIA MANY /hpf (NONE SEEN); URINE EPITHELIAL CELLS FEW /lpf (FEW)
[2018-08-26 18:37] LABS: INR 1.14 (0.5-1.4); PROTHROMBIN TIME (TEST) 11.7 SECONDS (9.5-11.5)
[2018-08-26] MEDS: Sodium Chloride 0.9% 1,000 ML IV SCH (21:11)
[2018-08-26 22:07] VITALS: BP 121/51
[2018-08-27 06:24] LABS: % BASOPHILS 0.6 % (0.0-2.0); % EOSINOPHILS 3.6 % (0.0-5.0); % LYMPHOCYTES 34.5 % (20.0-50.0); % MONOCYTES 6.5 % (2.0-10.0); % NEUTROPHILS 54.8 % (40.0-80.0); BASOPHILE ABSOLUTE 0.1 Th/cumm (0-0.2); EOSINOPHILE ABSOLUTE 0.3 Th/cmm (0.1-0.4); HEMATOCRIT 36.8 % (41.0-60); HEMOGLOBIN 11.9 gm/dL (12-16); LYMPHOCYTE ABSOLUTE 2.9 Th/cmm (1.5-3.0); MEAN CELL VOLUME 86.9 fl (81-100); MEAN CORPUSCULAR HEMOGLOBIN 28.2 pg (27.0-31.0); MEAN CORPUSCULAR HGB CONC 32.5 pg (28.0-36.0); MONOCYTE ABSOLUTE 0.6 Th/cmm (0.3-1.0); NEUTROPHILE ABSOLUTE 4.6 Th/cmm (1.8-8.0); RED BLOOD COUNT 4.23 Mil/cmm (3.80-5.20); RED CELL DISTRIBUTION WIDTH 13.7 % (11.5-20.0); WHITE BLOOD COUNT 8.5 Th/cmm (4.8-10.8)
[2018-08-27 06:26] LABS: PLATELET COUNT 287 Th/cmm (150-400)
[2018-08-27 06:30] LABS: ALB/GLOB RATIO 1.1 (1.0-1.8); ALBUMIN 3.6 gm/dL (3.7-5.3); ALKALINE PHOSPHATASE 77 U/L (34-104); BILIRUBIN,TOTAL 0.4 mg/dL (0.3-1.0); BUN - UREA NITROGEN 19 mg/dL (7-25); CALCIUM SERUM 8.7 mg/dL (8.6-10.3); CARBON DIOXIDE 25.2 mEq/L (21.0-31.0); CHLORIDE 109 mEq/L (98-107); CREATININE - SERUM 0.7 mg/dL (0.6-1.2); GFR AFRICAN-AMERICAN > 60.0 ml/min (>90); GFR NON AFRICAN-AMERICAN > 60.0 ml/min; GLUCOSE 113 mg/dL (70-105); POTASSIUM SERUM 4.2 mEq/L (3.5-5.1); SGOT 18 U/L (13-39); SGPT/ALT 20 U/L (7-52); SODIUM SERUM 141 mEq/L (136-145); TOTAL PROTEIN,SERUM 6.8 gm/dL (6.0-8.3)
[2018-08-27] MEDS: Vitamin D3 2,000 IU SGL PO SCH (08:35)
[2018-08-27] MEDS: Multivitamin Tab PO SCH (08:36)
[2018-08-27] MEDS: Diclofenac 75 mg Tab PO SCH ×2 (08:37→17:43)
--- NOTE | 2018-08-27 08:46 | History and Physical ---
History of Present Illness - HPI Chief Complaint: Dysuria and abdominal pain HPI: This is a patient that I follow in a SNF, I received a phone call stating that patient has having lower abdominal pain and dysuria x 3 days. she was send to ER for evaluation. During ER evaluation was found UTI. Vital Signs: Last Vital Signs Temp 97.1 F 08/27/18 07:56 Pulse 71 08/27/18 07:56 Resp 17 08/27/18 07:56 BP 108/48 08/27/18 07:56 Pulse Ox 99 08/27/18 07:56 This is a patient that I follow in a SNF, I received a phone call stating that patient has having lower abdominal pain and dysuria x 3 days. she was send to ER for evaluation. Past Medical History Cardiovascular: Report: CAD Pulmonary: Report: No Pertinent Hx CERTIFIED MEDICAL AIDE: Report: Dementia GI: Report: No Pertinent Hx Psych: Report: Anxiety, Depression Musculoskeletal: Report: Weakness Rheumatologic: Report: No pertinent Hx Infectious Disease: Report: No Pertinent Hx Renal/: Report: No Pertinent Hx Endocrine: Report: No Pertinent Hx Dermatology: Report: No Pertinent Hx - Past Surgical History Past Surgical History: Cholecystectomy Family Medical History - Family Member Mother History Unknown: Yes Social History Smoke: No Alcohol: None Drugs: None Lives: Prison Domestic Violence: Negative - Medications Home Medications: Home Medication Medication Instructions Recorded Type Acetaminophen [Tylenol] 650 mg PO Q4HR PRN 08/26/18 History Aspirin EC [Ecotrin] 81 mg PO DAILY 08/26/18 History Atorvastatin Calcium [Lipitor] 0.5 mg PO DAILY 08/26/18 History Benztropine [Cogentin*] 2 mg PO BID 08/26/18 History Cholecalciferol (Vitamin D3) 2,000 iu PO DAILY 08/26/18 History [Vitamin D3] Cranberry Fruit Concentrate 450 mg PO DAILY 08/26/18 History [Cranberry] Diclofenac [Voltaren] 75 mg PO BID 08/26/18 History Docusate Sodium [Colace] 100 mg PO BID 08/26/18 History Famotidine 20 mg PO DAILY 08/26/18 History Folic Acid [Folate*] 1 mg PO DAILY 08/26/18 History Gabapentin 400 mg PO TID 08/26/18 History Magnesium Hydroxide [Milk of 30 ml PO HS 08/26/18 History Magnesia] Memantine [Namenda] 5 mg PO DAILY 08/26/18 History Multivit W-Mn/FA/Lycop/Lut/Ala 1 tab PO DAILY 08/26/18 History [Multi-Betic Diabetes] QUEtiapine Fumarate [SEROquel] 25 mg PO BID 08/26/18 History Ranitidine HCl 150 mg PO DAILY 08/26/18 History traZODone HCl [Desyrel*] 50 mg BID 08/26/18 History - Allergies Allergies/Adverse Reactions: Allergies Allergy/AdvReac Type Severity Reaction Status Date / Time No Known Allergies Allergy Verified 08/26/18 13:30 Review of Systems - Review of Systems Constitutional: Report: No Significant Eyes: Report: No Significant ENT: Report: No Significant Respiratory: Report: No Significant Cardiovascular: Report: No Significant Gastrointestinal: Report: No Significant Genitourinary: Report: Dysuria Musculoskeletal: Report: No Significant Skin: Report: No Significant Neurological: Report: No Significant Physical Exam - Physical Exam HEENT: Report: Ears Nose Throat within normal limits Neck: Report: Within normal limits Cardiovascular Systems: Report: Regular, Rate and Rhythm Respiratory: Report: Breath Sounds are within normal limits Abdomen: Report: Tender to palpation Back: Report: Inspection of back is within normal limits. Extremities: Report: Non-tender to palpation. Skin: Report: Color of skin is within normal limits, Warm, Dry Neuro/Psych: Report: Depressed affect - Lab Results All Lab Results last 24 hours: Laboratory Results - last 24 hr 08/26/18 08/26/18 08/26/18 13:36 13:36 13:36 WBC 9.9 RBC 4.39 Hgb 12.6 Hct 38.2 L MCV 87.0 MCH 28.6 MCHC Differential 32.9 RDW 13.6 Plt Count 369 MPV 8.7 Neutrophils % 50.2 Lymphocytes % 39.6 Monocytes % 6.8 Eosinophils % 3.0 Basophils % 0.4 PT INR PTT (Actin FS) Sodium 137 Potassium 4.0 Chloride 105 Carbon Dioxide 20.4 L Anion Gap 15.6 BUN 26 H Creatinine 0.8 Est GFR ( Amer) > 60.0 Est GFR (Non-Af Amer) > 60.0 BUN/Creatinine Ratio 32.5 Glucose 117 H Whole Bld Lactic Acid Calcium 9.3 Total Bilirubin 0.3 AST 20 ALT 19 Alkaline Phosphatase 89 Troponin I < 0.01 L Total Protein 7.5 Albumin 3.8 Globulin 3.7 Albumin/Globulin Ratio 1.0 Amylase 38 Lipase 19 TSH Urine Source Urine Color Urine Clarity Urine pH Ur Specific [place] Urine Protein Urine Glucose (UA) Urine Ketones Urine Blood Urine Nitrate Urine Bilirubin Urine Urobilinogen Ur Leukocyte Esterase Urine RBC Urine WBC Ur Epithelial Cells Urine Bacteria 08/26/18 08/26/18 08/26/18 15:30 18:00 18:00 WBC RBC Hgb Hct MCV MCH MCHC Differential RDW Plt Count MPV Neutrophils % Lymphocytes % Monocytes % Eosinophils % Basophils % PT 11.7 H INR 1.14 PTT (Actin FS) 20.5 L Sodium Potassium Chloride Carbon Dioxide Anion Gap BUN Creatinine Est GFR ( Amer) Est GFR (Non-Af Amer) BUN/Creatinine Ratio Glucose Whole Bld Lactic Acid 0.74 Calcium Total Bilirubin AST ALT Alkaline Phosphatase Troponin I Total Protein Albumin Globulin Albumin/Globulin Ratio Amylase Lipase TSH Urine Source CATH Urine Color RED Urine Clarity HAZY Urine pH 8.5 Ur Specific [place] 1.010 Urine Protein 100 H Urine Glucose (UA) NEGATIVE Urine Ketones NEGATIVE Urine Blood LARGE H Urine Nitrate POSITIVE H Urine Bilirubin NEGATIVE Urine Urobilinogen 0.2 Ur Leukocyte Esterase LARGE H Urine RBC 10-25 H Urine WBC 6-10 H Ur Epithelial Cells FEW Urine Bacteria MANY H 08/27/18 08/27/18 08/27/18 05:35 05:35 05:35 WBC 8.5 RBC 4.23 Hgb 11.9 L Hct 36.8 L MCV 86.9 MCH 28.2 MCHC Differential 32.5 RDW 13.7 Plt Count 287 D MPV 9.0 Neutrophils % 54.8 Lymphocytes % 34.5 Monocytes % 6.5 Eosinophils % 3.6 Basophils % 0.6 PT INR PTT (Actin FS) Sodium 141 Potassium 4.2 Chloride 109 H Carbon Dioxide 25.2 Anion Gap 11.0 BUN 19 Creatinine 0.7 Est GFR ( Amer) > 60.0 Est GFR (Non-Af Amer) > 60.0 BUN/Creatinine Ratio 27.1 Glucose 113 H Whole Bld Lactic Acid Calcium 8.7 Total Bilirubin 0.4 AST 18 ALT 20 Alkaline Phosphatase 77 Troponin I Total Protein 6.8 Albumin 3.6 L Globulin 3.2 Albumin/Globulin Ratio 1.1 Amylase Lipase TSH 1.73 Urine Source Urine Color Urine Clarity Urine pH Ur Specific [place] Urine Protein Urine Glucose (UA) Urine Ketones Urine Blood Urine Nitrate Urine Bilirubin Urine Urobilinogen Ur Leukocyte Esterase Urine RBC Urine WBC Ur Epithelial Cells Urine Bacteria - Assessment Assessment: Patient is awake, alert, calm, in no acute distress, she seem anxious. Dx: UTI , , Depression, Dementia, Dysphagia, General muscle weakness. - Plan Plan: Patient is in IV NS, IV AB, Continue with SNF meds, Consult with Psychiatry is requested. Will continue to monitor.
[2018-08-27] MEDS ORDERED: Atorvastatin Calcium 10 MG TAB PO SCH (09:00)
[2018-08-27] MEDS ORDERED: [UNRECOGNIZED DRUG - OTHER] PO SCH (09:00)
[2018-08-27] MEDS ORDERED: Non-Formulary Item 1 EA (Cranberry Fruit Concentrate [Cranberry] 450 MG) PO SCH (09:00)
[2018-08-27] MEDS: Sodium Chloride 0.9% 1,000 ML IV SCH (10:52)
[2018-08-27 11:49] LABS: INR 1.06 (0.5-1.4)
--- NOTE | 2018-08-27 12:40 | Diagnostic Imaging Report ---
KUB single view HISTORY: Hematuria. COMPARISON: Ultrasound urinary bladder performed the same day FINDINGS: Generalized gas-filled loops of bowel are noted with copious stool within the descending colon. Cholecystectomy clips are noted. Degenerative changes of the spine are noted. No gross abnormal calcifications identified within the bilateral renal fossa regions. IMPRESSION: Generalized gas-filled bowel with copious stool in the descending colon. Evidence of prior cholecystectomy. No gross abnormal calcifications identified within the bilateral renal fossa regions. If indicated CT follow-up may also be helpful.
--- NOTE | 2018-08-27 12:41 | Diagnostic Imaging Report ---
Ultrasound urinary bladder History: Hematuria, Comparison: None Findings: Sonography of the pelvis was performed in multiple planes. The prevoid bladder volume is 248 mL's. Patient was incontinent and post void residual volumes are noted with the obtained. The urinary bladder wall measures 6 mm. IMPRESSION: Mild urinary bladder wall thickening, inflammatory or less likely infiltrative process cannot be excluded, correlate clinically given patient's history. Prevoid bladder volume 248 mL. Note patient was incontinent.
[2018-08-27] MEDS ORDERED: cefTRIAXone 1 GM in Sodium Chloride 0.9% 50 ML IV SCH (18:00)
--- NOTE | 2018-08-27 19:37 | Progress Notes ---
DATE: 08/27/2018 PSYCHIATRIC PROGRESS NOTE SUBJECTIVE: Staff was spoken to. The patient is interviewed. The patient has been admitted here for UTI and psychiatric consultation is called to address the issue of the depression. CHIEF COMPLAINT: "I'm feeling depressed for a long time. I needed some help." HISTORY OF PRESENT ILLNESS: This patient is a 76-year-old admitted from the [facility] for a UTI and psychiatric consultation has been done. The patient is stating that she had been having depression for a long period of time and it is going on and off. The patient is stating that she has been having difficult time to sleep. Appetite is noted to be fair. The patient however is not presenting with any suicidal ideations or plans. The patient denies any active hallucinations or delusions are noted. PAST PSYCHIATRIC HISTORY: ____ the above. The patient is reported that she has been treated for depression for a while. MEDICAL HISTORY: The patient has been treated for urinary tract infection. SOCIAL HISTORY: The patient is a resident of the [facility] facility. MENTAL STATUS EXAMINATION: The patient is a 76-year-old, looking her stated age. Moderately obese, superficially cooperative. Mood is noted to be depressed. Affect is constricted. Insight and judgment at this time are noted to be still impaired. Impulse control noted to be limited. The patient is not presenting with any threats to harm self or others. The patient has been able to recall the recent events and her date of . Also, the patient is able to come up accurately. DIAGNOSTIC IMPRESSION: 1. Major depressive disorder, recurrent and moderate. PLAN: To provide the patient with the supportive therapy and start the patient on antidepressant medication. JOB# [id number]
[2018-08-27] MEDS: Atorvastatin Calcium 10 MG TAB PO SCH (20:26)
[2018-08-27] MEDS: Magnesium Hydroxide (MOM) 30 mL UDC PO SCH (20:27)
[2018-08-28] MEDS: Sodium Chloride 0.9% 1,000 ML IV SCH ×2 (03:16→20:59)
[2018-08-28 05:26] LABS: % BASOPHILS 0.5 % (0.0-2.0); % EOSINOPHILS 2.8 % (0.0-5.0); % LYMPHOCYTES 30.7 % (20.0-50.0); % MONOCYTES 8.3 % (2.0-10.0); % NEUTROPHILS 57.7 % (40.0-80.0); BASOPHILE ABSOLUTE 0.1 Th/cumm (0-0.2); EOSINOPHILE ABSOLUTE 0.3 Th/cmm (0.1-0.4); HEMATOCRIT 35.1 % (41.0-60); HEMOGLOBIN 11.6 gm/dL (12-16); LYMPHOCYTE ABSOLUTE 3.6 Th/cmm (1.5-3.0); MEAN CORPUSCULAR HEMOGLOBIN 28.7 pg (27.0-31.0); MEAN PLATELET VOLUME 8.7 fl; NEUTROPHILE ABSOLUTE 6.6 Th/cmm (1.8-8.0); PLATELET COUNT 292 Th/cmm (150-400); RED BLOOD COUNT 4.04 Mil/cmm (3.80-5.20); RED CELL DISTRIBUTION WIDTH 13.8 % (11.5-20.0)
[2018-08-28 05:42] LABS: ALB/GLOB RATIO 1.1 (1.0-1.8); ALBUMIN 3.4 gm/dL (3.7-5.3); ALKALINE PHOSPHATASE 88 U/L (34-104); ANION GAP 9.8 (7.0-16.0); BILIRUBIN,TOTAL 0.3 mg/dL (0.3-1.0); BUN - UREA NITROGEN 16 mg/dL (7-25); CALCIUM SERUM 8.3 mg/dL (8.6-10.3); CARBON DIOXIDE 23.6 mEq/L (21.0-31.0); CHLORIDE 109 mEq/L (98-107); CREATININE - SERUM 0.7 mg/dL (0.6-1.2); GFR AFRICAN-AMERICAN > 60.0 ml/min (>90); GFR NON AFRICAN-AMERICAN > 60.0 ml/min; GLUCOSE 113 mg/dL (70-105); POTASSIUM SERUM 3.4 mEq/L (3.5-5.1); SGOT 22 U/L (13-39); SGPT/ALT 19 U/L (7-52); SODIUM SERUM 139 mEq/L (136-145); TOTAL PROTEIN,SERUM 6.6 gm/dL (6.0-8.3)
[2018-08-28 05:48] LABS: WHITE BLOOD COUNT 11.6 Th/cmm (4.8-10.8)
--- NOTE | 2018-08-28 08:54 | General Progress Note ---
Subjective - Review of Systems Service Date: 08/28/18 Subjective: I am better. Objective - Results Result Diagrams: 08/28/18 04:50 08/28/18 04:50 Recent Labs: Laboratory Last Values WBC 11.6 Th/cmm (4.8-10.8) H D 08/28/18 04:50 RBC 4.04 Mil/cmm (3.80-5.20) 08/28/18 04:50 Hgb 11.6 gm/dL (12-16) L 08/28/18 04:50 Hct 35.1 % (41.0-60) L 08/28/18 04:50 MCV 87.0 fl (81-100) 08/28/18 04:50 MCH 28.7 pg (27.0-31.0) 08/28/18 04:50 MCHC Differential 33.0 pg (28.0-36.0) 08/28/18 04:50 RDW 13.8 % (11.5-20.0) 08/28/18 04:50 Plt Count 292 Th/cmm (150-400) 08/28/18 04:50 MPV 8.7 fl 08/28/18 04:50 Neutrophils % 57.7 % (40.0-80.0) 08/28/18 04:50 Lymphocytes % 30.7 % (20.0-50.0) 08/28/18 04:50 Monocytes % 8.3 % (2.0-10.0) 08/28/18 04:50 Eosinophils % 2.8 % (0.0-5.0) 08/28/18 04:50 Basophils % 0.5 % (0.0-2.0) 08/28/18 04:50 PT 11.0 SECONDS (9.5-11.5) 08/27/18 11:30 INR 1.06 (0.5-1.4) 08/27/18 11:30 PTT (Actin FS) 27.2 SECONDS (26.0-38.0) 08/27/18 11:30 Sodium 139 mEq/L (136-145) 08/28/18 04:50 Potassium 3.4 mEq/L (3.5-5.1) L 08/28/18 04:50 Chloride 109 mEq/L (98-107) H 08/28/18 04:50 Carbon Dioxide 23.6 mEq/L (21.0-31.0) 08/28/18 04:50 Anion Gap 9.8 (7.0-16.0) 08/28/18 04:50 BUN 16 mg/dL (7-25) 08/28/18 04:50 Creatinine 0.7 mg/dL (0.6-1.2) 08/28/18 04:50 Est GFR ( Amer) > 60.0 ml/min (>90) 08/28/18 04:50 Est GFR (Non-Af Amer) > 60.0 ml/min 08/28/18 04:50 BUN/Creatinine Ratio 22.9 08/28/18 04:50 Glucose 113 mg/dL (70-105) H 08/28/18 04:50 POC Glucose 119 MG/DL (70 - 105) H 08/28/18 06:34 Whole Bld Lactic Acid 0.74 mmol/L (0.60-1.99) 08/26/18 18:00 Calcium 8.3 mg/dL (8.6-10.3) L 08/28/18 04:50 Total Bilirubin 0.3 mg/dL (0.3-1.0) 08/28/18 04:50 AST 22 U/L (13-39) 08/28/18 04:50 ALT 19 U/L (7-52) 08/28/18 04:50 Alkaline Phosphatase 88 U/L (34-104) 08/28/18 04:50 Troponin I < 0.01 ng/mL (0.01-0.05) L 08/26/18 13:36 Total Protein 6.6 gm/dL (6.0-8.3) 08/28/18 04:50 Albumin 3.4 gm/dL (3.7-5.3) L 08/28/18 04:50 Globulin 3.2 gm/dL 08/28/18 04:50 Albumin/Globulin Ratio 1.1 (1.0-1.8) 08/28/18 04:50 Amylase 38 U/L (29-103) 08/26/18 13:36 Lipase 19 U/L (11-82) 08/26/18 13:36 TSH 1.73 uIU/ml (0.34-5.60) 08/27/18 05:35 Urine Source CATH 08/26/18 15:30 Urine Color RED 08/26/18 15:30 Urine Clarity HAZY (CLEAR) 08/26/18 15:30 Urine pH 8.5 (4.6 - 8.0) 08/26/18 15:30 Ur Specific [place] 1.010 (1.005-1.030) 08/26/18 15:30 Urine Protein 100 mg/dL (NEGATIVE) H 08/26/18 15:30 Urine Glucose (UA) NEGATIVE mg/dL (NEGATIVE) 08/26/18 15:30 Urine Ketones NEGATIVE mg/dL (NEGATIVE) 08/26/18 15:30 Urine Blood LARGE (NEGATIVE) H 08/26/18 15:30 Urine Nitrate POSITIVE (NEGATIVE) H 08/26/18 15:30 Urine Bilirubin NEGATIVE (NEGATIVE) 08/26/18 15:30 Urine Urobilinogen 0.2 E.U./dL (0.2 - 1.0) 08/26/18 15:30 Ur Leukocyte Esterase LARGE (NEGATIVE) H 08/26/18 15:30 Urine RBC 10-25 /hpf (0-5) H 08/26/18 15:30 Urine WBC 6-10 /hpf (0-5) H 08/26/18 15:30 Ur Epithelial Cells FEW /lpf (FEW) 08/26/18 15:30 Urine Bacteria MANY /hpf (NONE SEEN) H 08/26/18 15:30 - Physical Exam Vitals and I&O: Vital Signs Temp 97.9 F 08/28/18 07:55 Pulse 73 08/28/18 07:55 Resp 18 08/28/18 07:55 BP 126/64 08/28/18 07:55 Pulse Ox 100 08/28/18 07:55 Intake & Output 08/27/18 08/28/18 08/28/18 18:59 06:59 18:59 Intake Total 1050 1100 Balance 1050 1100 Weight (lbs) 71.668 kg Intake: Intake, IV Amount 1050 1000 Sodium Chloride 0.9% 1, 1000 1000 000 ml @ 75 mls/hr IV . [id number] JACQUELINE Rx#:[id number] cefTRIAXone 1 gm In 50 Sodium Chloride 0.9% 50 ml @ 100 mls/hr IV Q24HR JACQUELINE Rx#:[id number] Oral 100 Other: # Voids 2 # Bowel Movements 0 Weight Source Bedscale Active Medications: Current Medications Acetaminophen (Tylenol) 650 mg PO Q4HR PRN PRN Reason: Pain (Mild) Stop: 10/25/18 22:14 Aspirin (Ecotrin) 81 mg PO DAILY JACQUELINE Stop: 10/26/18 08:59 Last Admin: 08/27/18 08:36 Dose: 81 mg Atorvastatin Calcium (Lipitor) 10 mg PO HS JACQUELINE; Protocol Stop: 10/26/18 20:59 Last Admin: 08/27/18 20:26 Dose: 10 mg Diclofenac Sodium (Voltaren) 75 mg PO BID JACQUELINE Stop: 10/26/18 08:59 Last Admin: 08/27/18 17:43 Dose: 75 mg Docusate Sodium (Colace) 100 mg PO BID [facility] Stop: 10/26/18 08:59 Last Admin: 08/27/18 17:42 Dose: 100 mg Famotidine (Pepcid) 20 mg PO DAILY JACQUELINE Stop: 10/26/18 08:59 Last Admin: 08/27/18 08:36 Dose: 20 mg Folic Acid (Folate) 1 mg PO DAILY JACQUELINE Stop: 10/26/18 08:59 Last Admin: 08/27/18 08:36 Dose: 1 mg Gabapentin (Neurontin) 400 mg PO TID [facility] Stop: 10/26/18 08:59 Last Admin: 08/27/18 20:26 Dose: 400 mg Sodium Chloride (Nacl 0.9%) 1,000 mls @ 75 mls/hr IV .[id number] JACQUELINE Stop: 10/25/18 19:27 Last Admin: 08/28/18 03:16 Dose: 75 mls/hr Piperacillin Sod/Tazobactam (Sod 3.375 gm/ Sodium Chloride) 50 mls @ 100 mls/ hr IV Q6HR JACQUELINE Stop: 10/27/18 08:59 Magnesium Hydroxide (Milk Of Magnesia) 30 ml PO HS [facility] Stop: 10/26/18 20:59 Last Admin: 08/27/18 20:27 Dose: 30 ml Memantine (Namenda) 5 mg PO DAILY JACQUELINE Stop: 10/26/18 08:59 Last Admin: 08/27/18 08:42 Dose: 5 mg Multivitamins/Vitamin C (Theragran) 1 tab PO DAILY [facility] Stop: 10/26/18 08:59 Last Admin: 08/27/18 08:36 Dose: 1 tab Mupirocin (Bactroban Oint) 1 appl NS BID [facility] Stop: 09/01/18 09:01 Last Admin: 08/27/18 17:44 Dose: 1 appl Quetiapine Fumarate (Seroquel) 25 mg PO BID JACQUELINE; Protocol Stop: 10/26/18 08:59 Last Admin: 08/27/18 17:43 Dose: 25 mg Trazodone HCl (Desyrel) 50 mg PO HS JACQUELINE; Protocol Stop: 10/26/18 20:59 Last Admin: 08/27/18 20:26 Dose: 50 mg Vitamin D (Vitamin D3) 2,000 iu PO DAILY [facility] Stop: 10/26/18 08:59 Last Admin: 08/27/18 08:35 Dose: 2,000 iu General: Alert, No acute distress HEENT: PERRLA Neck: Supple Cardiovascular: Regular rate Lungs: Clear to auscultation Abdomen: Bowel sounds, Soft Extremities: Other (No edema) Neurological: Other (Unstable gait) Skin: Other (Warm and dry) Psych/Mental Status: Other (Patient is confused, depress, not oriented.) Assessment/Plan - Assessment Assessment: Patient is awake, alert, calm, in no acute distress, she seem anxious. WBC increased today, AB is change to Zosyn. Dx: UTI, , Depression, Dementia, Dysphagia, General muscle weakness. - Plan Plan: Patient is in IV NS, IV AB, Continue with SNF meds, patient follow by Psychiatry and Urology. Today cystoscopy will be done. Will continue to monitor.
[2018-08-28] MEDS: Multivitamin Tab PO SCH (09:49)
[2018-08-28] MEDS: Vitamin D3 2,000 IU SGL PO SCH (09:51)
[2018-08-28] MEDS: Diclofenac 75 mg Tab PO SCH ×2 (09:51→16:59)
--- NOTE | 2018-08-28 10:19 | Diagnostic Imaging Report ---
Portable chest x-ray HISTORY: Cough, preoperative Allowing for poor inspiration, the heart size is normal. Atherosclerotic calcification seen in the aortic arch. No definite acute focal pulmonary processes. Arthritic changes seen about the shoulder regions. IMPRESSION: 1. No acute abnormalities 2. Atherosclerotic vascular changes
[2018-08-28] MEDS ORDERED: fentaNYL Citrate 100 mcg/2mL Vial ONE (11:00)
[2018-08-28] MEDS ORDERED: Neostigmine 10mg/10mL Vial ONE (11:05)
[2018-08-28] MEDS ORDERED: Propofol **SURGERY USE ONLY** 20 ML IV ONE (11:05)
[2018-08-28] MEDS ORDERED: Albuterol Nebulizer 2.5mg/3mL HHN ONE (12:21)
--- NOTE | 2018-08-28 13:00 | Operative Report ---
DATE OF SURGERY: PREOPERATIVE DIAGNOSIS: Gross hematuria. POSTOPERATIVE DIAGNOSIS: Gross hematuria, possible urinary tract infection. SURGEON: Halina Navarro MD NAME OF PROCEDURE: Cystoscopy, bladder biopsy, fulguration. ANESTHESIA: General. INDICATIONS: The patient is a 68-year-old who came in with gross hematuria, some abdominal pain, possible dysuria and retention. She was started on antibiotics and I recommended a cystoscopy to workup up the hematuria. Upper tract ultrasounds have not shown any abnormalities, but she may require a CT. Bladder wall was thickened and it is conceivable she has a neurogenic bladder with retention that causes the infection and the bleeding. FINDINGS: Cystoscopy revealed bladder wall to be unremarkable except 2 areas of hyperemia on the lateral perez, one of which was biopsied. I fulgurated both these areas with a Bugbee electrode and then completed the procedure since we could not do retrograde pyelograms due to technical problems with the table and the machine. Blood loss was less than 25 mL. There were no complications. DESCRIPTION OF PROCEDURE: The patient was brought to the operating room, prepped and draped in the dorsal lithotomy position after general anesthesia was induced. The urethra was first dilated. Then, the bladder was examined with a 30 and 70 degree lenses. Findings were noted. Then, the 2 suspicious areas were biopsied, which looked a little red and hypervascular. This was done with a cold cup biopsy forceps. These areas were then fulgurated extensively with the Bugbee electrode to stop the bleeding and the procedure was completed with introduction of a Khan catheter. There were no complications. [facility]# [id number]
[2018-08-28] MEDS: HYDROmorphone 1 mg/mL 1mL Syr IVP PRN ×2 (13:42→20:59)
--- NOTE | 2018-08-28 16:27 | Consultation ---
DATE OF CONSULTATION: 08/28/2018 This is the continuation of the previous consult I just dictated, but could not complete it. Please continue with the same dictation. MEDICATIONS: The patient's home medications are aspirin, Lipitor, Cogentin, vitamin D3, Voltaren, Colace, famotidine, gabapentin, Namenda, quetiapine, fumarate, ranitidine, and trazodone. ALLERGIES: None. REVIEW OF SYSTEMS: She has no fever, weight loss, headache, or seizures. No chest pain, coughing, or shortness of breath. Denied sore throat or vision change. Memory seems to be adequate. No chest pain, coughing or shortness of breath. Denies abdominal pain, which has now resolved after admission. No vomiting or diarrhea. Denies skin or joint problems. PHYSICAL EXAMINATION: GENERAL: On exam, she is awake and alert. She seems to be well oriented and answered my questions quite well. VITAL SIGNS: Temperature 97.9, heart rate 73, blood pressure 126/64. No fever in the hospital so far. HEAD AND NECK: Normocephalic. Trachea is central. Pupils equal and reactive. No jaundice. Thyroid and lymph nodes not palpable. Carotid bruit absent. CHEST: Symmetrical. LUNGS: Clear. No rales or rhonchi. HEART: Sounds normal in sinus rhythm, no murmur. ABDOMEN: Soft, nontender, no organomegaly, mass, or hernia. Bladder is mildly tender to deep palpation. Flanks are nontender. EXTREMITIES: No edema or lymphadenopathy. NEUROLOGIC: Nonfocal. Moves all 4 limbs. LABORATORY DATA: White count 11.6 up from 8.5 yesterday, hemoglobin 11.6, platelets 292. Sodium 139, potassium 3.4, BUN 16, creatinine 0.7, glucose 113 and 119, calcium 8.3. Liver functions are normal. Urine showed large amount of white cells, blood and red cells. Urine culture; however, shows more than 100,000 Gram-negative rods. Further details are pending. Blood cultures are negative. Abdominal ultrasound showed no hydronephrosis and mild hepatomegaly. Pelvic ultrasound showed thickened urinary bladder, uterus and ovaries not visualized and bladder ultrasound showed prevoid volume of 248 and the patient was apparently incontinent and unable to complete the postvoid testing. IMPRESSION: History of gross hematuria, rule out bladder tumor, rule out cystitis. Recommend cystoscopy, retrograde, possible bladder biopsy, possible bladder tumor resection. She understands and agrees. Pros and cons were explained in great details. JOB# [id number]
--- NOTE | 2018-08-28 17:18 | Consultation ---
DATE OF CONSULTATION: 08/28/2018 REASON FOR CONSULTATION: Seen for hematuria. HISTORY OF PRESENT ILLNESS: The patient is a 68-year-old who was admitted from shelter for lower abdominal pain and dysuria and also hematuria. The patient denies ever having hematuria or frequent infections. She claims to have adequate control on the urine and using the bathroom, but I am not sure if this history is accurate. She denies having surgery on the bladder or kidneys or stone disease. She admits to being a smoker for many years, but quit about 25 years ago. MEDICAL HISTORY: Positive for hyperlipidemia and gastritis, chronic pain and denies having diabetes. She may have some element of dementia. She may have hypertension or diabetes as well as it is listed in some other part of her chart; however, she is not taking any medication for diabetes. PAST SURGICAL HISTORY: Cholecystectomy and may be C-sections. She had surgery on her toes and also on the wrist for carpal tunnel. HOME MEDICATIONS: Aspirin, Lipitor. DICTATION ENDS HERE JOB# [id number]
[2018-08-28] MEDS: Magnesium Hydroxide (MOM) 30 mL UDC PO SCH (21:41)
[2018-08-28] MEDS: Atorvastatin Calcium 10 MG TAB PO SCH (22:26)
[2018-08-29 05:18] LABS: % BASOPHILS 0.8 % (0.0-2.0); % EOSINOPHILS 2.2 % (0.0-5.0); % LYMPHOCYTES 27.3 % (20.0-50.0); % MONOCYTES 5.5 % (2.0-10.0); % NEUTROPHILS 64.2 % (40.0-80.0); BASOPHILE ABSOLUTE 0.1 Th/cumm (0-0.2); EOSINOPHILE ABSOLUTE 0.2 Th/cmm (0.1-0.4); HEMATOCRIT 36.9 % (41.0-60); HEMOGLOBIN 12.2 gm/dL (12-16); LYMPHOCYTE ABSOLUTE 2.7 Th/cmm (1.5-3.0); MEAN CELL VOLUME 87.2 fl (81-100); MEAN CORPUSCULAR HEMOGLOBIN 28.9 pg (27.0-31.0); MEAN CORPUSCULAR HGB CONC 33.1 pg (28.0-36.0); MEAN PLATELET VOLUME 8.8 fl; MONOCYTE ABSOLUTE 0.5 Th/cmm (0.3-1.0); NEUTROPHILE ABSOLUTE 6.3 Th/cmm (1.8-8.0); PLATELET COUNT 313 Th/cmm (150-400); RED BLOOD COUNT 4.23 Mil/cmm (3.80-5.20); RED CELL DISTRIBUTION WIDTH 13.7 % (11.5-20.0); WHITE BLOOD COUNT 9.8 Th/cmm (4.8-10.8)
[2018-08-29 05:31] LABS: ALB/GLOB RATIO 1.1 (1.0-1.8); ALBUMIN 3.5 gm/dL (3.7-5.3); ALKALINE PHOSPHATASE 167 U/L (34-104); ANION GAP 11.9 (7.0-16.0); BILIRUBIN,TOTAL 0.6 mg/dL (0.3-1.0); BUN - UREA NITROGEN 11 mg/dL (7-25); CALCIUM SERUM 8.6 mg/dL (8.6-10.3); CARBON DIOXIDE 23.9 mEq/L (21.0-31.0); CHLORIDE 108 mEq/L (98-107); CREATININE - SERUM 0.6 mg/dL (0.6-1.2); GFR AFRICAN-AMERICAN > 60.0 ml/min (>90); GFR NON AFRICAN-AMERICAN > 60.0 ml/min; GLUCOSE 108 mg/dL (70-105); POTASSIUM SERUM 3.8 mEq/L (3.5-5.1); SGOT 199 U/L (13-39); SGPT/ALT 224 U/L (7-52); SODIUM SERUM 140 mEq/L (136-145); TOTAL PROTEIN,SERUM 6.7 gm/dL (6.0-8.3)
[2018-08-29] MEDS: Diclofenac 75 mg Tab PO SCH (08:40)
[2018-08-29] MEDS: Vitamin D3 2,000 IU SGL PO SCH (08:41)
[2018-08-29] MEDS: Multivitamin Tab PO SCH (08:41)
--- NOTE | 2018-08-29 10:13 | General Progress Note ---
Subjective - Review of Systems Service Date: 08/29/18 Subjective: Patient is confused Objective - Results Result Diagrams: 08/29/18 04:55 08/29/18 04:55 Recent Labs: Laboratory Last Values WBC 9.8 Th/cmm (4.8-10.8) 08/29/18 04:55 RBC 4.23 Mil/cmm (3.80-5.20) 08/29/18 04:55 Hgb 12.2 gm/dL (12-16) 08/29/18 04:55 Hct 36.9 % (41.0-60) L 08/29/18 04:55 MCV 87.2 fl (81-100) 08/29/18 04:55 MCH 28.9 pg (27.0-31.0) 08/29/18 04:55 MCHC Differential 33.1 pg (28.0-36.0) 08/29/18 04:55 RDW 13.7 % (11.5-20.0) 08/29/18 04:55 Plt Count 313 Th/cmm (150-400) 08/29/18 04:55 MPV 8.8 fl 08/29/18 04:55 Neutrophils % 64.2 % (40.0-80.0) 08/29/18 04:55 Lymphocytes % 27.3 % (20.0-50.0) 08/29/18 04:55 Monocytes % 5.5 % (2.0-10.0) 08/29/18 04:55 Eosinophils % 2.2 % (0.0-5.0) 08/29/18 04:55 Basophils % 0.8 % (0.0-2.0) 08/29/18 04:55 PT 11.0 SECONDS (9.5-11.5) 08/27/18 11:30 INR 1.06 (0.5-1.4) 08/27/18 11:30 PTT (Actin FS) 27.2 SECONDS (26.0-38.0) 08/27/18 11:30 Sodium 140 mEq/L (136-145) 08/29/18 04:55 Potassium 3.8 mEq/L (3.5-5.1) 08/29/18 04:55 Chloride 108 mEq/L (98-107) H 08/29/18 04:55 Carbon Dioxide 23.9 mEq/L (21.0-31.0) 08/29/18 04:55 Anion Gap 11.9 (7.0-16.0) 08/29/18 04:55 BUN 11 mg/dL (7-25) 08/29/18 04:55 Creatinine 0.6 mg/dL (0.6-1.2) 08/29/18 04:55 Est GFR ( Amer) > 60.0 ml/min (>90) 08/29/18 04:55 Est GFR (Non-Af Amer) > 60.0 ml/min 08/29/18 04:55 BUN/Creatinine Ratio 18.3 08/29/18 04:55 Glucose 108 mg/dL (70-105) H 08/29/18 04:55 POC Glucose 119 MG/DL (70 - 105) H 08/28/18 06:34 Whole Bld Lactic Acid 0.74 mmol/L (0.60-1.99) 08/26/18 18:00 Calcium 8.6 mg/dL (8.6-10.3) 08/29/18 04:55 Total Bilirubin 0.6 mg/dL (0.3-1.0) 08/29/18 04:55 AST 199 U/L (13-39) H 08/29/18 04:55 ALT 224 U/L (7-52) H 08/29/18 04:55 Alkaline Phosphatase 167 U/L (34-104) H 08/29/18 04:55 Troponin I < 0.01 ng/mL (0.01-0.05) L 08/26/18 13:36 Total Protein 6.7 gm/dL (6.0-8.3) 08/29/18 04:55 Albumin 3.5 gm/dL (3.7-5.3) L 08/29/18 04:55 Globulin 3.2 gm/dL 08/29/18 04:55 Albumin/Globulin Ratio 1.1 (1.0-1.8) 08/29/18 04:55 Amylase 38 U/L (29-103) 08/26/18 13:36 Lipase 19 U/L (11-82) 08/26/18 13:36 TSH 1.73 uIU/ml (0.34-5.60) 08/27/18 05:35 Urine Source CATH 08/26/18 15:30 Urine Color RED 08/26/18 15:30 Urine Clarity HAZY (CLEAR) 08/26/18 15:30 Urine pH 8.5 (4.6 - 8.0) 08/26/18 15:30 Ur Specific Louann 1.010 (1.005-1.030) 08/26/18 15:30 Urine Protein 100 mg/dL (NEGATIVE) H 08/26/18 15:30 Urine Glucose (UA) NEGATIVE mg/dL (NEGATIVE) 08/26/18 15:30 Urine Ketones NEGATIVE mg/dL (NEGATIVE) 08/26/18 15:30 Urine Blood LARGE (NEGATIVE) H 08/26/18 15:30 Urine Nitrate POSITIVE (NEGATIVE) H 08/26/18 15:30 Urine Bilirubin NEGATIVE (NEGATIVE) 08/26/18 15:30 Urine Urobilinogen 0.2 E.U./dL (0.2 - 1.0) 08/26/18 15:30 Ur Leukocyte Esterase LARGE (NEGATIVE) H 08/26/18 15:30 Urine RBC 10-25 /hpf (0-5) H 08/26/18 15:30 Urine WBC 6-10 /hpf (0-5) H 08/26/18 15:30 Ur Epithelial Cells FEW /lpf (FEW) 08/26/18 15:30 Urine Bacteria MANY /hpf (NONE SEEN) H 08/26/18 15:30 - Physical Exam Vitals and I&O: Vital Signs Temp 98.9 F 08/29/18 08:00 Pulse 81 08/29/18 08:00 Resp 18 08/29/18 08:00 BP 137/71 08/29/18 08:00 Pulse Ox 99 08/29/18 08:00 Intake & Output 08/28/18 08/29/18 08/29/18 18:59 06:59 18:59 Intake Total 1400 250 Output Total 2700 3160 Balance -1300 -2910 Weight (lbs) 71.668 kg 72.121 kg Intake: Intake, IV Amount 1100 50 Piperacillin Sodium/ 100 50 Tazobact 3.375 gm In Sodium Chloride 0.9% 50 ml @ 100 mls/hr IV Q6HR [facility] Rx#:[id number] Sodium Chloride 0.9% 1, 1000 000 ml @ 75 mls/hr IV . [id number] [facility] Rx#:[id number] Oral 300 200 Output: Urine 2700 3160 Other: # Bowel Movements 1 0 Weight Source Bedscale Bedscale Active Medications: Current Medications Acetaminophen (Tylenol) 650 mg PO Q4HR PRN PRN Reason: Pain (Mild) Stop: 10/25/18 22:14 Aspirin (Ecotrin) 81 mg PO DAILY [facility] Stop: 10/26/18 08:59 Last Admin: 08/29/18 08:41 Dose: 81 mg Diclofenac Sodium (Voltaren) 75 mg PO BID [facility] Stop: 10/26/18 08:59 Last Admin: 08/29/18 08:40 Dose: 75 mg Docusate Sodium (Colace) 100 mg PO BID [facility] Stop: 10/26/18 08:59 Last Admin: 08/29/18 08:41 Dose: 100 mg Famotidine (Pepcid) 20 mg PO DAILY [facility] Stop: 10/26/18 08:59 Last Admin: 08/29/18 08:42 Dose: 20 mg Folic Acid (Folate) 1 mg PO DAILY [facility] Stop: 10/26/18 08:59 Last Admin: 08/29/18 08:41 Dose: 1 mg Hydromorphone HCl (Dilaudid) 1 mg IVP Q8H PRN PRN Reason: Pain (Moderate) Stop: 10/27/18 13:36 Last Admin: 08/28/18 20:59 Dose: 1 mg Sodium Chloride (Nacl 0.9%) 1,000 mls @ 75 mls/hr IV .[id number] [facility] Stop: 10/25/18 19:27 Last Admin: 08/28/18 20:59 Dose: 75 mls/hr Piperacillin Sod/Tazobactam (Sod 3.375 gm/ Sodium Chloride) 50 mls @ 100 mls/ hr IV Q6HR [facility] Stop: 10/27/18 08:59 Last Admin: 08/29/18 05:41 Dose: 100 mls/hr Magnesium Hydroxide (Milk Of Magnesia) 30 ml PO HS [facility] Stop: 10/26/18 20:59 Last Admin: 08/28/18 21:41 Dose: Not Given Memantine (Namenda) 5 mg PO DAILY [facility] Stop: 10/26/18 08:59 Last Admin: 10/27/18 08:41 Dose: 5 mg Multivitamins/Vitamin C (Theragran) 1 tab PO DAILY [facility] Stop: 10/26/18 08:59 Last Admin: 08/29/18 08:41 Dose: 1 tab Mupirocin (Bactroban Oint) 1 appl NS BID [facility] Stop: 09/01/18 09:01 Last Admin: 08/29/18 08:41 Dose: 1 appl Ondansetron HCl (Zofran) 4 mg IV Q6H PRN PRN Reason: Nausea / Vomiting Stop: 10/27/18 16:08 Last Admin: 08/28/18 21:54 Dose: 4 mg Quetiapine Fumarate (Seroquel) 25 mg PO HS [facility]; Protocol Stop: 10/27/18 20:59 Last Admin: 08/28/18 21:08 Dose: Not Given Trazodone HCl (Desyrel) 50 mg PO HS [facility]; Protocol Stop: 10/26/18 20:59 Last Admin: 08/28/18 21:15 Dose: 50 mg Vitamin D (Vitamin D3) 2,000 iu PO DAILY [facility] Stop: 10/26/18 08:59 Last Admin: 08/29/18 08:41 Dose: 2,000 iu Zolpidem Tartrate (Ambien) 5 mg PO HS PRN PRN Reason: Insomnia Stop: 10/27/18 20:23 Last Admin: 08/29/18 00:02 Dose: 5 mg General: Alert, No acute distress HEENT: PERRLA Neck: Supple Cardiovascular: Regular rate Lungs: Clear to auscultation Abdomen: Bowel sounds, Soft Extremities: Other (No edema) Neurological: Other (Unstable gait) Skin: Other (Warm and dry) Psych/Mental Status: Other (Patient is confused, depress, not oriented.) Assessment/Plan - Assessment Assessment: Patient is awake, alert, confused, not oriented, Paranoic, stating that people is laughing at her, and she refused meds because she is thinking we want to kill her. She anxious and crying during interview. Cystoscopy done. Hepatic enzimes increased today. Dx: UTI, , Depression, Dementia, Dysphagia, General muscle weakness. - Plan Plan: Patient is in IV NS, IV AB, Continue with SNF meds, patient follow by Psychiatry and Urology. Cystoscopy was done. Will continue to monitor.
--- NOTE | 2018-08-29 11:11 | Progress Notes ---
DATE: 08/28/2018 PSYCHIATRIC PROGRESS NOTE SUBJECTIVE: Staff was spoken to. The patient is interviewed. Mood is noted to be irritable. Affect is constricted. Insight and judgment at this time are noted to be still impaired. Impulse control is noted to be poor. Coping skills are also noted to be very poor. The patient has been having difficult time to cope with the stress. The patient is reporting that see has been feeling depressed and she could not figure it out what she has to do. The patient is reporting that she has been having this problem with the depression on and off for years. The patient's coping skills at this time are noted to be poor. The patient, however, has been mentioning taking the medication in the morning, has been making her to be too sleepy and the patient is being closely monitored at this time. PLAN: To consider adding a low dose of an antidepressant medication for the patient and followup. [facility]# [id number]
[2018-08-29] MEDS: HYDROmorphone 1 mg/mL 1mL Syr IVP PRN (12:28)
--- NOTE | 2018-08-29 21:52 | Progress Notes ---
DATE: 08/29/2018 PSYCHIATRIC PROGRESS NOTE SUBJECTIVE: Staff was spoken to. The patient is interviewed. Mood is noted to be depressed. Affect is constricted. The patient is stating that her depression comes on and off and has been having difficult time to cope with it. No side effects to the medications. ASSESSMENT: The patient is presenting with depression. PLAN: The patient is going to be started with a low dose of Celexa, there is Lexapro that is 5 mg and the patient is going to be followed up with supportive therapy. JOB# [id number]
--- NOTE | 2018-08-29 22:37 | Discharge Summary ---
General Discharge Summary - Discharge Summary Date of Admission: 08/29/18 Admitting Diagnosis: UTI, Depression, Dementia, Dysphagia, General muscle weakness Discharge Date: 08/29/28 Discharge Diagnosis: UTI, Depression, Dementia, Dysphagia, General muscle weakness. Laboratory Findings: Laboratory Results - last 24 hr 08/29/18 08/29/18 04:55 04:55 WBC 9.8 RBC 4.23 Hgb 12.2 Hct 36.9 L MCV 87.2 MCH 28.9 MCHC Differential 33.1 RDW 13.7 Plt Count 313 MPV 8.8 Neutrophils % 64.2 Lymphocytes % 27.3 Monocytes % 5.5 Eosinophils % 2.2 Basophils % 0.8 Sodium 140 Potassium 3.8 Chloride 108 H Carbon Dioxide 23.9 Anion Gap 11.9 BUN 11 Creatinine 0.6 Est GFR ( Amer) > 60.0 Est GFR (Non-Af Amer) > 60.0 BUN/Creatinine Ratio 18.3 Glucose 108 H Calcium 8.6 Total Bilirubin 0.6 AST 199 H ALT 224 H Alkaline Phosphatase 167 H Total Protein 6.7 Albumin 3.5 L Globulin 3.2 Albumin/Globulin Ratio 1.1 Hospital Course: Patient was hospitalized, she responded to treatment and improved, Cystoscopia was done. Treatment: Patient was started in IV NS, Ceftriaxone IV that later was change to Zosyn, She was continue with SNF meds, Cystoscopy was done. She was follow by Psychiatry, and Urology. Condition at Discharge: Stable Disposition: Discharge/Transfered to SNF Home Medications: Home Medication Medication Instructions Recorded Type Atorvastatin Calcium [Lipitor] 0.5 mg PO DAILY 08/26/18 History Benztropine [Cogentin*] 2 mg PO BID 08/26/18 History Cranberry Fruit Concentrate 450 mg PO DAILY 08/26/18 History [Cranberry] Gabapentin 400 mg PO TID 08/26/18 History Multivit W-Mn/FA/Lycop/Lut/Ala 1 tab PO DAILY 08/26/18 History [Multi-Betic Diabetes] Ranitidine HCl 150 mg PO DAILY 08/26/18 History Acetaminophen [Tylenol] 650 mg PO Q4HR PRN tab 08/29/18 Rx Aspirin EC [Ecotrin] 81 mg PO DAILY ect 08/29/18 Rx Cholecalciferol (Vitamin D3) 2,000 iu PO DAILY sgl 08/29/18 Rx [Vitamin D3] Diclofenac [Voltaren] 75 mg PO BID tab 08/29/18 Rx Docusate Sodium [Colace] 100 mg PO BID cap 08/29/18 Rx Escitalopram Oxalate [Lexapro] 5 mg PO DAILY tab 08/29/18 Rx Famotidine [Pepcid] 20 mg PO DAILY tab 08/29/18 Rx Folic Acid [Folate*] 1 mg PO DAILY tab 08/29/18 Rx HYDROmorphone [Dilaudid] 1 mg IVP Q8H PRN syr 08/29/18 Rx Magnesium Hydroxide [Milk of 30 ml PO HS udc 08/29/18 Rx Magnesia] Memantine [Namenda] 5 mg PO DAILY tab 08/29/18 Rx Multivitamin [Theragran] 1 tab PO DAILY tab 08/29/18 Rx Mupirocin Oint [Mupirocin*] 1 appl NS BID appl 08/29/18 Rx Ondansetron HCl [Zofran*] 4 mg IV Q6H PRN vial 08/29/18 Rx Piperacillin Sodium/Tazobact 3.375 gm IV Q6HR vial 08/29/18 Rx [Zosyn] QUEtiapine Fumarate [SEROquel] 25 mg PO HS tab 08/29/18 Rx Zolpidem Tartrate [Ambien] 5 mg PO HS PRN tab 08/29/18 Rx traZODone HCl [Desyrel*] 50 mg PO HS tab 08/29/18 Rx Activity: As Tolerated Discharge Diet: 2 Gram Sodium Consults and Follow-Up: Devante Joshi [Primary Care Provider] - Consulting Speciality: Urology Instructions: Urinary Tract Infection, [id number], Dementia
--- NOTE | 2018-08-30 00:33 | Progress Notes ---
DATE: 08/29/2018 UROLOGY PROGRESS NOTE The patient was seen earlier this morning after which she was discharged home with instructions to have the Khan until she is seen in the office to decide if she can tolerate voiding on her own without getting infections. I suspect she has a neurogenic bladder and retains a lot, which may have been the cause of her hemorrhagic cystitis. PHYSICAL EXAMINATION: VITAL SIGNS: On exam, temperature was 97.3, heart rate 89, blood pressure 138/81. ABDOMEN: Soft, bladder, nontender, and nondistended. Khan catheter, no blood. EXTREMITIES: No edema. LABORATORY AND DIAGNOSTIC DATA: Urine did grow out Proteus. Hemoglobin 12.2, white count improved to 9.8. Creatinine stable at 0.6. IMPRESSION: 1. Hemorrhagic cystitis with Proteus. If she has the Khan, I do not think we need to treat the Proteus with antibiotics, just catheter irrigation periodically would be sufficient as she will definitely get colonized with Proteus. 2. Dementia. Somehow yesterday she seemed to be more oriented and was able to answer all my questions, but today Dr. Joshi felt she was quite disoriented and confused. 3. History of hypertension, which is stable. 4. Chronic pain syndrome. No change. 5. Hyperlipidemia. No change. JOB# [id number]
[2018-08-30] MEDS ORDERED: Escitalopram Oxalate 5 mg Tab PO SCH (09:00)
--- NOTE | 2018-09-01 11:13 | Pathology Report ---
[id number] Collection date: 08/28/2018 Surgeon: Dr. Meagan Navarro Specimen Description: Bladder biopsy Gross Description: Received in formalin are two rodriguez soft tissue fragments ranging from 0.2 to 0.3 cm in greatest dimension. Totally submitted in one cassette. Microscopic Description: The histologic sections show benign urothelial mucosa with acute and chronic inflammation present consisting of increased numbers of neutrophils admixed with lymphocytes and plasma cells. There is focal superficial mucosal ulceration associated with areas of acute inflammation. Several small lymphoid aggregates are also identified comprised of small mature appearing lymphocytes. There is no evidence for atypia. Diagnosis: Acute and chronic cystitis with superficial mucosal ulceration (bladder biopsy). Comment: There is no evidence for malignancy. [facility]# [id number] [facility]
== END 2018-08-29 16:20 | DRG 669 ==
LOC: ER 12:55 → MSI 19:37
PROVIDERS: ADMIT General Practice; ATTEND General Practice
PROC: 0TBB8ZX Excision of Bladder, Via Natural or Artificial Opening Endoscopic, Diagnostic (ICD-10-PCS; principal; 2018-08-28)
PROC: 0T5B8ZZ Destruction of Bladder, Via Natural or Artificial Opening Endoscopic (ICD-10-PCS; 2018-08-28)
DX: N39.0 Urinary tract infection, site not specified (principal); F33.1 Major depressive disorder, recurrent, moderate; F03.90 Unspecified dementia, unspecified severity, without behavioral disturbance, psychotic disturbance, mood disturbance, and anxiety; R13.10 Dysphagia, unspecified; I10 Essential (primary) hypertension; E11.9 Type 2 diabetes mellitus without complications; I25.10 Atherosclerotic heart disease of native coronary artery without angina pectoris; R31.0 Gross hematuria; E78.5 Hyperlipidemia, unspecified; K21.9 Gastro-esophageal reflux disease without esophagitis; E86.0 Dehydration; M62.81 Muscle weakness (generalized); F41.9 Anxiety disorder, unspecified; B96.4 Proteus (mirabilis) (morganii) as the cause of diseases classified elsewhere; G89.4 Chronic pain syndrome; M19.90 Unspecified osteoarthritis, unspecified site; Z83.3 Family history of diabetes mellitus; Z82.49 Family history of ischemic heart disease and other diseases of the circulatory system; Z90.49 Acquired absence of other specified parts of digestive tract; Z79.82 Long term (current) use of aspirin
CPT/HCPCS: 36415-UA; 71045-TC; 74000-TC; 76700-TC; 76856-TC; 76857-TC; 80053-TC; 81001-TC; 82150-TC; 82948-90; 83036-90; 83605; 83690-TC; 84443-TC; 84484-TC; 85025-TC; 85610-TC; 85730-TC; 87086-90; 93005; 94640; 94760; 96372; J0696; J1170; J2405; J2543; J2704; J2710; J3010; J7030; J7070; J7613; X6258; X7704; Z7610